=== PATIENT | male | born 1970 | race Caucasian/White ===

== ENCOUNTER 2023-07-22 17:53 | Emergency (ER) | payer OTHER, SELFPAY ==
[2023-07-22 17:58] VITALS: BP 157/112
--- NOTE | 2023-07-22 18:36 | ED.GENMED ---
History of Present Illness
General
Chief Complaint: Cough
Source: patient
Time Seen by Provider: 07/22/23 18:23
Travel History
Have you had any contact with someone who has COVID-19?: No
Do you have any symptoms of coronavirus? Fever > 100 degrees, chills, cough, shortness of breath, sore throat, loss of taste or smell, muscle aches, or headache?: No
History of Present Illness
History of Present Illness:
52-year-old male with past medical history of hypertension, hyperlipidemia, recently treated for pneumonia earlier this year presenting to the emergency department from urgent care after experiencing hemoptysis that started today stating he noticed
flecks of blood intermixed with sputum which has been gradually worsening throughout the day. Patient went to urgent care who performed a chest x-ray which show a new right perihilar infiltrate but improved left-sided infiltrate from previous
pneumonia but was advised he should come to the emergency department. Patient completed a course of cefpodoxime about 2 weeks ago. He denies any fevers, chills, rigors, pleurisy, chest pain, palpitations, diaphoresis. Patient does note a history
of smoking cigarettes back when he was in high school but quit over 30 years ago. He denies any PE risk factors including recent travel, surgeries or cancer history.
Past History
Past History
ED Past Medical History: HTN, Hypercholesterolemia, Psychiatric (Anxiety, alcohol abuse) and Other (ETOH abuse/DTs/liver disease)
ED Past Surgical History: Orthopedic
Social History
Tobacco: Former smoker
Alcohol: Chronic alcoholic
Drug: None
Personal: Single
Living: alone
Review of Systems
Review of Systems
All Other Systems: ROS reviewed and negative except as documented in HPI and ROS
Phy Exam
Physical Exam
Physical Exam:
GENERAL: Alert , in no apparent distress
head: Normocephalic atraumatic
EYE: Clear conjunctiva
NECK: Supple
ENT: o/p clr, mmm.
CARDIAC: Regular rate and rhythm . Borderline tachycardic rate and rhythm, no murmur
LUNGS: Clear breath sounds bilaterally, no acute respiratory distress, no wheezes/rales/rhonchi
NEUROLOGICAL: Alert and oriented
SKIN: Warm and dry, skin intact.
MUSCULOSKELETAL: No edema, well perfused.
PSYCH: Normal and appropriate interaction.
Scores
Heart Failure Risk
Heart Failure Risk Score: Not Applicable
Heart Score for Chest Pain Patients
STEMI patient?: Not applicable
Withdrawal Assessment of Alcohol
Withdrawal Assessment Completed?: Not applicable
Course
Orders/Labs/Results
Orders:
Orders
07/22/23 18:24
CT Chest Pe Study Urgent
Comment:
Reason For Exam: hemoptysis
07/22/23 18:48
Complete Blood Count/With Diff Urgent
07/22/23 20:18
Comprehensive Metabolic Panel Urgent
07/22/23 21:58
Doxycycline [Vibramycin] 100 mg PO NOW STA
Abnormal Lab Results
07/22/23 07/22/23
18:48 20:18
WBC 15.5 H 10^3/uL
(4.8-10.8)
Abs Immat Gran (auto) 0.1 H 10^3/uL
(0-0.05)
Absolute Neuts (auto) 12.2 H 10^3/uL
(1.4-6.5)
Absolute Monos (auto) 1.1 H 10^3/uL
(0.1-0.6)
Neutrophils % 78.8 H %
(42.2-75.2)
Lymphocytes % 12.8 L %
(20.5-51.1)
Chloride 97 L mmol/L
(98-107)
Creatinine 0.5 L mg/dL
(0.7-1.3)
Glucose 102 H mg/dl
(70-99)
07/22/23 18:48
07/22/23 20:18
Vital Signs
Initial and Last Documented VS:
Initial Vital Signs
Temp Pulse Resp BP Pulse Ox
98.5 F 108 20 157/112 97
07/22/23 17:58 07/22/23 17:58 07/22/23 17:58 07/22/23 17:58 07/22/23 17:58
Last Documented Vital Signs
Temp Pulse Resp BP Pulse Ox
98.3 F 84 20 134/95 97
07/22/23 22:15 07/22/23 22:15 07/22/23 22:15 07/22/23 22:15 07/22/23 22:15
MDM/Problems Addressed
Differential Diagnosis Includes:
Pneumonia, malignancy, pulmonary embolism
MDM/Problems Addressed:
52-year-old male presenting the emergency department for evaluation of persistent cough in the setting of recently diagnosed pneumonia few weeks ago, completed course of antibiotics but still had a lingering cough, today had a few episodes of
hemoptysis prompting him to go back to urgent care who did a chest x-ray which showed a new right perihilar infiltrate but he was advised that he should come to the ER for further evaluation. Patient is hypertensive and does have a mildly elevated
heart rate here. CT angio of the chest ordered for PE rule out. Patient is otherwise hemodynamically stable and well-appearing.
*Radiology
Radiology exam reviewed: radiology read reviewed
*Pulse Oximetry
Patient hypoxic: no
*Critical Care Note
Total Time (30-74mins, 75-104mins- exclusive of procedures): Not Applicable
Patient Management
Escalation/DeEscalation of care consider admission/obs:
Patient CT of the chest confirms there is no pulmonary embolism however patient does have mild right upper and lower lobe pneumonia. He was informed of his CT findings as well as leukocytosis and given that patient had already been on an antibiotic
and did not improve I recommended we admit the patient for IV antibiotics, infectious disease consultation and possible pulmonary consultation. Patient ultimately declined this and would prefer to be discharged home and states that if he feels he
is not getting any better he will return to the emergency department. Will treat patient with doxycycline. First dose of antibiotic given prior to discharge. Patient is aware of return precautions and that he can come back to the emergency
department at any time he so chooses.
ED Attending Note
-
Portions of this chart may have been created with voice recognition software.� Occasional wrong word or��sound alike� substitutions may have occurred due to the inherent limitations of voice recognition software.
Discharge Plan
Departure
Patient Disposition: Home (Routine Discharge)
Date of Disposition: 07/22/23
Time of Disposition: 21:57
Patient with high blood pressure during this ER visit?: Yes
Discharge Problem:
Pneumonia
Instructions: Pneumonia, Adult (DC)
Prescriptions:
New
doxycycline hyclate 100 mg tablet
100 mg PO BID Qty: 19 0RF
No Action
amlodipine 10 MG tablet
10 mg PO QPM
rosuvastatin 20 MG tablet
20 mg PO QPM
metoprolol succinate 100 mg tablet extended release 24 hr
100 mg PO DAILY
folic acid
1 tab PO DAILY
Referrals:
NONE,* [Family Provider] -
Interventions
Interventions:
*Risk Screen - Suicide Last Done: 07/22/23 17:58
*General Assessment Last Done: 07/22/23 19:36
*Neglect/Abuse Screening Last Done: 07/22/23 17:58
ED- Fall Risk Assessment Last Done: 07/22/23 19:36
*ED COVID-19 Vaccine History Last Done: 07/22/23 17:58
*Nursing Disposition Last Done: 07/22/23 22:48
ED- Pulmonary Assessment Last Done: 07/22/23 19:36
Discharge Date and Time
Discharge Date/Time: 07/22/23 22:30
[2023-07-22 19:00] LABS: % Basophils 0.4 % (0-2); % Eosinophils 0.3 % (0-6); % Immature Granulocytes 0.5 % (0-0.5); % Lymphocytes 12.8 % (20.5-51.1); % Monocytes 7.2 % (1.7-9.3); % Neutrophils 78.8 % (42.2-75.2); Absolute Basophils 0.1 10^3/uL (0-0.2); Absolute Immature Granulocytes 0.1 10^3/uL (0-0.05); Absolute Monocytes 1.1 10^3/uL (0.1-0.6); Absolute Neutrophils 12.2 10^3/uL (1.4-6.5); Hematocrit 44.5 % (39.0-52.0); Hemoglobin 15.8 g/dL (13.0-18.0); Mean Corp Hgb Conc. 35.5 g/dL (33.0-37.0); Mean Corpuscular Hgb 29.5 pg (27.0-31.0); Nucleated Red Blood Cells % 0 % (-); Platelet Count 238 10^3/uL (130-400); Red Blood Cell Count 5.36 10^6/uL (4.70-6.10); Red Cell Dist. Width 12.7 % (11.5-14.5); White Blood Cell Count 15.5 10^3/uL (4.8-10.8)
[2023-07-22 19:36] VITALS: BMI 33.4
[2023-07-22 19:40] VITALS: BP 152/99
[2023-07-22 20:38] LABS: ALT (SGPT) 38 U/L (0-50); AST (SGOT) 36 U/L (17-59); Albumin 4.2 g/dl (3.5-5.0); Alkaline Phosphatase 123 U/L (38-126); Blood Urea Nitrogen 15 mg/dl (9-20); Calcium 9.7 mg/dl (8.4-10.2); Carbon Dioxide 29 mmol/L (22-30); Chloride 97 mmol/L (98-107); Estimated Creatinine Clearance > 125 ml/min; Glucose 102 mg/dl (70-99); Potassium 4.2 mmol/L (3.5-5.1); Sodium 135 mmol/L (135-145); Total Bilirubin 1.3 mg/dl (0.2-1.3); Total Protein 6.9 g/dl (6.3-8.2); eGFR > 60.00
[2023-07-22 22:15] VITALS: BP 134/95
[2023-07-22] MEDS: VIBRAMYCIN 100 MG PO (22:18)
== END 2023-07-22 22:30 | disposition home or self-care (01) ==
LOC: EMR 17:53
PROVIDERS: EMERGENCY PHYSICIAN Student in an Organized Health Care Education/Training Program
DX: J18.9 Pneumonia, unspecified organism (principal); E78.00 Pure hypercholesterolemia, unspecified; I10 Essential (primary) hypertension; Z87.891 Personal history of nicotine dependence
CPT/HCPCS: 99284; 71275; 80053; 85025; Q9967

== ENCOUNTER 2023-08-04 10:42 | Emergency (ER) | payer OTHER, SELFPAY ==
[2023-08-04 10:51] VITALS: BP 144/90
[2023-08-04 11:02] VITALS: BP 109/84
[2023-08-04 11:27] VITALS: BMI 35.1
[2023-08-04 12:08] VITALS: BP 132/95
[2023-08-04 12:10] LABS: % Basophils 0.5 % (0-2); % Eosinophils 0.5 % (0-6); % Immature Granulocytes 0.5 % (0-0.5); % Monocytes 6.1 % (1.7-9.3); % Neutrophils 71.4 % (42.2-75.2); Absolute Lymphocytes 1.7 10^3/uL (1.2-3.4); Absolute Monocytes 0.5 10^3/uL (0.1-0.6); Absolute Neutrophils 5.7 10^3/uL (1.4-6.5); Hematocrit 43.2 % (39.0-52.0); Hemoglobin 15.7 g/dL (13.0-18.0); Mean Corp Hgb Conc. 36.3 g/dL (33.0-37.0); Mean Corpuscular Hgb 29.7 pg (27.0-31.0); Mean Corpuscular Volume 81.7 fL (80.0-94.0); Nucleated Red Blood Cells % 0 % (-); Platelet Count 219 10^3/uL (130-400); Red Blood Cell Count 5.29 10^6/uL (4.70-6.10); Red Cell Dist. Width 13.2 % (11.5-14.5)
[2023-08-04 12:36] LABS: Blood Urea Nitrogen 14 mg/dl (9-20); Carbon Dioxide 23 mmol/L (22-30); Chloride 104 mmol/L (98-107); Estimated Creatinine Clearance > 125 ml/min; Glucose 110 mg/dl (70-99); Potassium 4.4 mmol/L (3.5-5.1); Sodium 137 mmol/L (135-145); eGFR > 60.00
[2023-08-04 12:40] LABS: Troponin I < 0.012 ng/ml
[2023-08-04 13:02] VITALS: BP 132/89
--- NOTE | 2023-08-04 13:52 | ED.GENMED ---
History of Present Illness
General
Chief Complaint: Breathing Problem
Source: patient
Exam Limitations: none
Time Seen by Provider: 08/04/23 11:40
Travel History
Have you had any contact with someone who has COVID-19?: No
Do you have any symptoms of coronavirus? Fever > 100 degrees, chills, cough, shortness of breath, sore throat, loss of taste or smell, muscle aches, or headache?: No
History of Present Illness
History of Present Illness:
52-year-old male presents feeling short of breath despite being treated for pneumonia about 10 days ago. Patient states he just does not feel better. Still had a mild cough but no fevers. On prior visit he had a CTA of the chest. no cp. no
further hemoptysis. No leg pain, no leg swelling.
Past History
Past History
ED Past Medical History: HTN, Hypercholesterolemia, Psychiatric (Anxiety, alcohol abuse) and Other (ETOH abuse/DTs/liver disease)
ED Past Surgical History: Orthopedic
Social History
Tobacco: Former smoker
Alcohol: Chronic alcoholic
Drug: None
Personal: Single
Living: alone
Phy Exam
Physical Exam
Physical Exam:
CONSTITUTIONAL Patient alert and oriented to person, place and time. Well-appearing. Vital signs reviewed.
HEAD atraumatic, normocephalic.
EYES eyelids normal to inspection, Pupils equally round and reactive to light, Extraocular muscles intact, Conjunctiva normal, Sclera normal.
NECK normal range of motion, Trachea midline, no jugular venous distention.
RESPIRATORY CHEST No respiratory distress noted, Chest expansion equal, Bilateral breath sounds clear.
CARDIOVASCULAR regular rate and rhythm, Heart sounds normal.
ABDOMEN abdomen nontender, Bowel sounds normal. No distention.
BACK normal inspection, no obvious deformities
UPPER EXTREMITY range of motion normal, Motor strength normal, no cyanosis, no edema.
LOWER EXTREMITY range of motion normal, Motor strength normal, no cyanosis, no edema.
NEURO Speech normal, No focal motor deficits, Jamarcus coma scale 15, Memory normal, Cranial Nerves intact to screening exam.
SKIN skin warm, dry, and normal in color.
PSYCHIATRIC patient oriented to person place and time, Normal affect.
Scores
Heart Failure Risk
Heart Failure Risk Score: Not Applicable
Course
Orders/Labs/Results
Orders:
Orders
08/04/23 11:02
Chest [CR Chest - 2 Views ] Urgent
Comment:
Reason For Exam: cough/sob
08/04/23 11:55
Electrocardiogram (*1) Stat
Reason for Study: Other
Other Reason for Exam: chest pain
EKG- Treatment ONCE
08/04/23 12:05
Basic Metabolic Panel Urgent
Complete Blood Count/With Diff Urgent
Troponin I Urgent
Abnormal Lab Results
08/04/23
12:05
Creatinine 0.6 L mg/dL
(0.7-1.3)
Glucose 110 H mg/dl
(70-99)
08/04/23 12:05
08/04/23 12:05
Vital Signs
Initial and Last Documented VS:
Initial Vital Signs
Temp Pulse Resp BP Pulse Ox
98.3 F 79 16 144/90 96
08/04/23 10:51 08/04/23 10:51 08/04/23 10:51 08/04/23 10:51 08/04/23 10:51
Last Documented Vital Signs
Temp Pulse Resp BP Pulse Ox
98.3 F 75 19 132/89 98
08/04/23 10:51 08/04/23 14:00 08/04/23 14:00 08/04/23 13:02 08/04/23 12:08
MDM/Problems Addressed
Differential Diagnosis Includes:
SD, CHF, pulmonary embolism, pneumonia, pneumothorax, anemia, electrolyte disturbance, dehydration
MDM/Problems Addressed:
Dyspnea
*Radiology
Radiology exam reviewed: all reviewed NAD by ED Provider
*Pulse Oximetry
Patient hypoxic: no
*EKG
Interpreted by ED Provider?: Yes
Interpretation: normal
Rate: normal
Rhythm: sinus and PVC's
QRS Pattern: normal QRS
Ischemia: non-specific ST changes
*Jet Mechanic Interpretation
Rate: normal
Interpretation: normal
Rhythm: sinus
*Critical Care Note
Total Time (30-74mins, 75-104mins- exclusive of procedures): Not Applicable
Data Reviewed
Review of Other/Old Records Reveals: Radiology Studies (Prior CTA reviewed, no pulmonary embolism noted by radiology)
Source: patient
Prescriptions/Medications Considered But Not Given:
Considered antibiotics but he is afebrile white count normal. Chest x-ray normal
Further Testing Considered But Not Given:
Consider chest CT but recently with pulmonary embolism
Patient Management
Escalation/DeEscalation of care consider admission/obs:
Patient appears well. Troponin negative, EKG unremarkable, chest x-ray unremarkable, okay for discharge outpatient follow-up
ED Attending Note
-
Portions of this chart may have been created with voice recognition software.� Occasional wrong word or��sound alike� substitutions may have occurred due to the inherent limitations of voice recognition software.
Discharge Plan
Departure
Patient Disposition: Home (Routine Discharge)
Date of Disposition: 08/04/23
Time of Disposition: 13:57
Patient with high blood pressure during this ER visit?: Yes
Discharge Problem:
Dyspnea
Instructions: Shortness of Breath (Dyspnea) (DC)
Prescriptions:
No Action
amlodipine 10 MG tablet
10 mg PO DAILY
rosuvastatin 20 MG tablet
20 mg PO QPM
metoprolol succinate 100 mg tablet extended release 24 hr
100 mg PO DAILY
folic acid 1 mg Tablet
1 mg PO DAILY
Referrals:
NONE,* [Family Provider] -
Activity Restrictions/Additional Instructions:
Please see your doctor in the next 3 to 5 days for follow-up and reevaluation. Return immediately for chest pain blood, fevers or any other concerns.
Interventions
Interventions:
*Risk Screen - Suicide Last Done: 08/04/23 10:51
*General Assessment Last Done: 08/04/23 10:51
*Neglect/Abuse Screening Last Done: 08/04/23 10:51
ED- Fall Risk Assessment Last Done: 08/04/23 11:27
*Nursing Disposition Last Done: 08/04/23 14:41
ED- Cardiac Assessment Last Done: 08/04/23 11:27
ED- Pulmonary Assessment Last Done: 08/04/23 11:27
Discharge Date and Time
Discharge Date/Time: 08/04/23 14:42
== END 2023-08-04 14:42 | disposition home or self-care (01) ==
LOC: EMR 10:42
PROVIDERS: EMERGENCY PHYSICIAN Emergency Medicine
DX: R06.00 Dyspnea, unspecified (principal); R06.02 Shortness of breath; R05.9 Cough, unspecified; Z87.891 Personal history of nicotine dependence
CPT/HCPCS: 99285; 71046; 80048; 84484; 85025; 93005

== ENCOUNTER 2024-02-17 04:41 | Emergency (ER) | payer OTHER, SELFPAY ==
[2024-02-17] VITALS (7 sets, daily range): BP systolic 157–196; BP diastolic 110–124; BMI 38.1
[2024-02-17 05:52] LABS: % Basophils 1.1 % (0-2); % Eosinophils 1.1 % (0-6); % Immature Granulocytes 0.9 % (0-0.5); % Lymphocytes 21.9 % (20.5-51.1); % Monocytes 10.8 % (1.7-9.3); % Neutrophils 64.2 % (42.2-75.2); Absolute Basophils 0.1 10^3/uL (0-0.2); Absolute Eosinophils 0.1 10^3/uL (0-0.7); Absolute Immature Granulocytes 0.1 10^3/uL (0-0.05); Absolute Lymphocytes 1.2 10^3/uL (1.2-3.4); Absolute Monocytes 0.6 10^3/uL (0.1-0.6); Absolute Neutrophils 3.6 10^3/uL (1.4-6.5); Hematocrit 43.5 % (39.0-52.0); Mean Corp Hgb Conc. 36.8 g/dL (33.0-37.0); Mean Corpuscular Hgb 31.4 pg (27.0-31.0); Mean Corpuscular Volume 85.3 fL (80.0-94.0); Nucleated Red Blood Cells % 0 % (-); Platelet Count 239 10^3/uL (130-400); Red Cell Dist. Width 12.5 % (11.5-14.5); White Blood Cell Count 5.7 10^3/uL (4.8-10.8)
[2024-02-17 06:50] LABS: ALT (SGPT) 69 U/L (0-50); AST (SGOT) 68 U/L (17-59); Albumin 4.9 g/dl (3.5-5.0); Alkaline Phosphatase 128 U/L (38-126); Blood Urea Nitrogen 11 mg/dl (9-20); Calcium 9.3 mg/dl (8.4-10.2); Carbon Dioxide 28 mmol/L (22-30); Chloride 103 mmol/L (98-107); Estimated Creatinine Clearance > 125 ml/min; Glucose 125 mg/dl (70-99); Sodium 147 mmol/L (135-145); Total Bilirubin 0.6 mg/dl (0.2-1.3); Total Protein 7.8 g/dl (6.3-8.2); eGFR > 60.00
[2024-02-17 07:02] LABS: NT-proBNP 36.4 pg/ml; Troponin I 0.018 ng/ml
--- NOTE | 2024-02-17 07:18 | ED.GENMED ---
History of Present Illness
General
Chief Complaint: Blood Pressure Problem
Source: patient
Exam Limitations: none
Time Seen by Provider: 02/17/24 06:23
Nursing documentation reviewed up to this point in time: agreed with
History of Present Illness
History of Present Illness:
Patient with history of hypertension on metoprolol and amlodipine, presents to ED after waking up this morning with sensation of 'high blood pressure'. When he checked his blood pressure, it was really high and he felt as though he needed to be
checked out. Denies headache. Denies dizziness. Denies blurred vision. Denies chest pain or chest palpitations. Denies shortness of breath. Denies nausea or vomiting. Denies diaphoresis. Patient's blood pressure currently is being managed by
his television picture tube rebuilder at [facility]. Of note, patient stopped taking amlodipine 2 days ago, as he noticed significant leg swelling, without informing his physician. He does not report appointment with his television picture tube rebuilder in 2 months. Denies recent
dietary changes. Denies recent change in weight. Denies back pain. Patient does admit to drinking daily, i.e. wine.
Past History
Past History
ED Past Medical History: HTN, Hypercholesterolemia, Psychiatric (Anxiety, alcohol abuse) and Other (ETOH abuse/DTs/liver disease)
ED Past Surgical History: Orthopedic
Social History
Tobacco: Former smoker
Alcohol: Chronic alcoholic
Drug: None
Personal: Single
Living: alone
Review of Systems
Review of Systems
Allergies reviewed?: Yes
All Other Systems: ROS reviewed and negative except as documented in HPI and ROS
Constitutional: Reports no symptoms
EENT: Reports no symptoms
Respiratory: Reports no symptoms
Cardiac: Reports no symptoms
ABD/GI: Reports no symptoms
: Reports no symptoms
Musculoskeletal: Reports edema
Skin: Reports no symptoms
Neurological: Reports no symptoms
Phy Exam
Physical Exam
Physical Exam:
Physical Exam
General: no apparent distress, not acutely ill. afebrile. overweight. hypertensive.
Head: nc/at. eomi
Neck: supple. no meningeal signs.
Heart: s1/s2 regular rate and rhythm, no murmur. equal radial pulses.
Lungs: no acute respiratory distress. clear bilaterally
Abdomen: normal bowel sounds. not tender.
Neuro: alert and oriented. no focal neurological deficits
Skin: no rash
Psychiatric: well kept. interactive and cooperative
Extremities: LE b/l edema, nonpitting. no calf tenderness.
Course
Orders/Labs/Results
Orders:
Orders
02/17/24 05:38
Electrocardiogram (*1) Urgent
Reason for Study: Shortness of Breath
EKG- Treatment ONCE
02/17/24 05:40
Complete Blood Count/With Diff Urgent
02/17/24 06:19
Comprehensive Metabolic Panel Urgent
Comment: REDRAW
NT-proBNP Urgent
TSH Reflex To Free T4 Urgent
Comment: ADD ON
Troponin I Urgent
02/17/24 07:09
Add On- LAB Urgent
Tests Added?: TSH to reflex Free T4
Hydrochlorothiazide [Oretic] 25 mg PO NOW STA
Labetalol HCl [Trandate] 20 mg IV NOW STA
02/17/24 07:18
Urinalysis Reflex To Culture Urgent
Date Specimen was Collected: 02/17/24
Time Specimen was Collected: 07:14
Abnormal Lab Results
02/17/24 02/17/24
05:40 06:19
MCH 31.4 H pg
(27.0-31.0)
Abs Immat Gran (auto) 0.1 H 10^3/uL
(0-0.05)
Immature Gran % 0.9 H %
(0-0.5)
Monocytes % 10.8 H %
(1.7-9.3)
Sodium 147 H mmol/L
(135-145)
Glucose 125 H mg/dl
(70-99)
AST 68 H U/L
(17-59)
ALT 69 H U/L
(0-50)
Alkaline Phosphatase 128 H U/L
(38-126)
02/17/24 05:40
02/17/24 06:19
Vital Signs
Initial and Last Documented VS:
Initial Vital Signs
Temp Pulse Resp BP Pulse Ox
99 F 114 20 174/114 98
02/17/24 04:45 02/17/24 04:45 02/17/24 04:45 02/17/24 04:45 02/17/24 04:45
Last Documented Vital Signs
Temp Pulse Resp BP Pulse Ox
99 F 96 21 164/111 96
02/17/24 04:45 02/17/24 07:30 02/17/24 07:30 02/17/24 07:26 02/17/24 06:00
MDM/Problems Addressed
MDM/Problems Addressed:
Patient presents with elevated blood pressure, without any other complaints, i.e. headache/chest pain/shortness of breath/dizziness. Patient's blood pressure improved with treatment. Mildly abnormal blood work noted and informed patient to
follow-up with his television picture tube rebuilder for reevaluation, including repeat blood work. In addition, patient will be advised to discontinue his Lasix and start HCTZ, until reevaluation with his television picture tube rebuilder. Patient expresses understanding at time of
discharge.
*Critical Care Note
Total Time (30-74mins, 75-104mins- exclusive of procedures): Not Applicable
ED Attending Note
-
Portions of this chart may have been created with voice recognition software.� Occasional wrong word or��sound alike� substitutions may have occurred due to the inherent limitations of voice recognition software.
Discharge Plan
Departure
Patient Disposition: Home (Routine Discharge)
Date of Disposition: 02/17/24
Time of Disposition: 07:55
Patient with high blood pressure during this ER visit?: Yes
Discharge Problem:
Hypertension
Instructions: High Blood Pressure (DC)
Prescriptions:
New
hydrochlorothiazide 25 mg tablet
25 mg PO DAILY Qty: 20 0RF
No Action
amlodipine 10 MG tablet
10 mg PO DAILY
rosuvastatin 20 MG tablet
20 mg PO DAILY
metoprolol succinate 100 mg tablet extended release 24 hr
50 mg PO DAILY
folic acid 1 mg Tablet
1 mg PO DAILY
furosemide [Lasix] 40 mg Tablet
40 mg PO DAILYPRN PRN (Reason: fluid retension)
Referrals:
NONE,* [Family Provider] -
Stand Alone Forms: Return to Work
Activity Restrictions/Additional Instructions:
As discussed, please follow-up with your television picture tube rebuilder for reevaluation upon discharge. In the meantime, please discontinue use of Lasix at home. Your prescription has been sent electronically to [facility] pharmacy in [place].
Interventions
Interventions:
*Risk Screen - Suicide Last Done: 02/17/24 04:45
*General Assessment Last Done: 02/17/24 04:45
*Neglect/Abuse Screening Last Done: 02/17/24 04:45
ED- Fall Risk Assessment Last Done: 02/17/24 04:45
*ED COVID-19 Vaccine History Last Done: 02/17/24 04:45
ED- Cardiac Assessment Last Done: 02/17/24 06:27
ED- Neurological Assessment Last Done: 02/17/24 06:27
ED- Pulmonary Assessment Last Done: 02/17/24 06:27
Discharge Date and Time
Print Language: MALAWIAN
[2024-02-17] MEDS: TRANDATE 20 MG IV (07:22)
[2024-02-17] MEDS: ORETIC 25 MG PO (07:23)
[2024-02-17 08:32] LABS: Urine Albumin 2+ (Neg - Trace); Urine Bilirubin Negative (Negative); Urine Character Clear (Clear); Urine Color Yellow; Urine Glucose Negative (Negative); Urine Ketone Negative (Negative); Urine Leukocyte Negative (Negative); Urine Nitrite Negative (Negative); Urine Occult Blood 1+ (Negative); Urine Urobilinogen Negative (Neg - 1+)
[2024-02-17 08:58] LABS: TSH Reflex To Free T4 1.51 uIU/ml (0.47-4.68)
[2024-02-17 09:12] LABS: Urine Amorphous Seen; Urine Mucus Few
[2024-02-17 09:14] LABS: Urine White Cell 0-2 /HPF (0-5)
[2024-02-17 09:15] LABS: Urine Red Blood Cell 0-2 /HPF (0-2)
== END 2024-02-17 08:05 | disposition home or self-care (01) ==
LOC: EMR 04:41
PROVIDERS: Emergency Medicine; EMERGENCY PHYSICIAN Emergency Medicine
DX: I10 Essential (primary) hypertension (principal); E78.00 Pure hypercholesterolemia, unspecified; Z87.891 Personal history of nicotine dependence; Z79.899 Other long term (current) drug therapy; F41.9 Anxiety disorder, unspecified; F10.10 Alcohol abuse, uncomplicated; K70.9 Alcoholic liver disease, unspecified
CPT/HCPCS: 99283; 96374; 80053; 81003; 81015; 83880; 84443; 84484; 85025; 93005

== ENCOUNTER 2024-04-27 09:11 | Inpatient (IN) | payer OTHER, SELFPAY ==
[2024-04-27] VITALS (13 sets, daily range): BP systolic 108–193; BP diastolic 87–124; BMI 33.9
--- NOTE | 2024-04-27 06:27 | ED.GENMED ---
History of Present Illness
General
Chief Complaint: Withdrawal Symptoms
Source: patient, records and ambulance crew
Exam Limitations: none
Time Seen by Provider: 04/27/24 06:21
Nursing documentation reviewed up to this point in time: agreed with
History of Present Illness
History of Present Illness:
53-year-old male with a past medical history of hypertension, hyperlipidemia, paroxysmal A-fib, alcohol abuse with prior history of severe withdrawal symptoms and DTs who presents to the emergency department for evaluation of 'alcohol withdrawal.'
Patient says 'I am having withdrawal symptoms, they started yesterday.' He says that he has been a heavy drinker for quite some time, recently has been drinking about a bottle of wine a day. He says that he decided he wanted to stop drinking again
and his last drink was Friday evening (roughly 36 hours ago). He says that yesterday he started having tremors and this morning was having increasing tremulousness, anxiety, nausea with dry heaving. He says he is having some dizziness. He says he
has had similar symptoms with withdrawal in the past. He denies any headache. He denies any hallucinations. He denies any suicidality. He does have prior history of severe withdrawal symptoms and DTs requiring intubation and ICU admission.
Past History
Past History
ED Past Medical History: HTN, Hypercholesterolemia, Psychiatric (Anxiety, alcohol abuse) and Other (ETOH abuse/DTs/liver disease)
ED Past Surgical History: Orthopedic
Social History
Tobacco: Former smoker
Alcohol: Chronic alcoholic
Drug: None
Personal: Single
Living: alone
Review of Systems
Review of Systems
All Other Systems: ROS reviewed and negative except as documented in HPI and ROS
Constitutional: Denies fever or chills
EENT: Denies sore throat
Respiratory: Denies trouble breathing
Cardiac: Denies chest pain or palpitations
ABD/GI: Reports nausea and vomiting; Denies abdominal pain or diarrhea
: Denies flank pain
Musculoskeletal: Denies neck pain or back pain
Neurological: Reports dizzy; Denies headache
Psychiatric: Reports anxiety; Denies suicidal
Phy Exam
Physical Exam
Physical Exam:
General: Awake, alert, oriented x3; tremulous and anxious appearing
Head: Normocephalic, atraumatic
Eyes: Faint scleral icterus, pupils equal round and reactive to light bilaterally
Throat: Airway intact, dry mucous membranes
Neck: Trachea midline, supple without meningismus
Lungs: Clear to auscultation bilaterally, no wheezing, rales, rhonchi
Heart: Tachycardia with regular rhythm, no murmurs, gallops, or rubs
Abd: Soft, non distended, nontender
Neuro: Tremulous, no focal weakness or numbness, no dysarthria
Skin: Moist, scattered bruising on the extremities which appear old, no signs of acute trauma
Extremities: Warm and well-perfused with good pulses and no significant edema
Scores
Heart Failure Risk
Heart Failure Risk Score: Not Applicable
Heart Score for Chest Pain Patients
STEMI patient?: Not applicable
Withdrawal Assessment of Alcohol
Withdrawal Assessment Completed?: Yes
Nausea and Vomiting: Intermittent nausea with dry heaves
Tactile Disturbances: None
Tremor: Severe, even with arms not extended
Auditory Disturbances: Not present
Paroxysmal Sweats: Beads of sweat obvious on forehead
Visual Disturbances: Not present
Anxiety: Moderately anxious, or guarded, so anxiety is inferred
Headache, Fullness in Head: Not present
Agitation: Normal activity
Orientation and clouding of sensorium: Oriented and can do serial additions
Total CIWA Score: 19
Alcohol Withdrawal Medication Recommendation: Equal to MSAS Score 8-11. Lorazepam 1-2mg IV NOW & re-assess q1hr
Course
Orders/Labs/Results
Orders:
Orders
04/27/24 06:26
Electrocardiogram (*1) Urgent
Reason for Study: Tachycardia
EKG- Treatment ONCE
Drug Screen, Urine [Urine Drug Abuse Screen] Urgent
Lorazepam [Ativan] 1 mg IV NOW STA
04/27/24 06:27
0.9% Sodium Chloride 1000 ml [Nss] 1,000 ml IV BOLUS
04/27/24 06:31
Alcohol Urgent
Complete Blood Count/With Diff Urgent
Comprehensive Metabolic Panel Urgent
Lipase Urgent
Magnesium Urgent
Phos [Phosphorus] Urgent
Prothrombin Time Urgent
04/27/24 06:37
Bedside Glucose- Treatment ONCE
FOLic ACID [Folvite] 1 mg 0.9% Sodium Chloride 50 ml [Nss] 50 ml IV ONCE
Thiamine Injection 100 mg IV NOW STA
04/27/24 07:08
Potassium Chloride [KCl] 40 meq PO NOW STA
Potassium Chloride [KCl] 40 meq 0.9% Sodium Chloride 250 ml [Nss] 250 ml IV NOW
04/27/24 07:09
Ondansetron Injectable [Zofran] 4 mg IV NOW STA
04/27/24 08:00
Dextrose 5%/0.45%Sodchl 500 ml [D5/0.45%NaCl] 500 ml IV 100 mls/hr
Abnormal Lab Results
04/27/24 04/27/24
06:31 06:43
Abs Immat Gran (auto) 0.1 H 10^3/uL
(0-0.05)
Absolute Neuts (auto) 7.2 H 10^3/uL
(1.4-6.5)
Absolute Lymphs (auto) 0.4 L 10^3/uL
(1.2-3.4)
Immature Gran % 1.4 H %
(0-0.5)
Neutrophils % 85.3 H %
(42.2-75.2)
Lymphocytes % 5.2 L %
(20.5-51.1)
Sodium 133 L mmol/L
(135-145)
Potassium 2.7 L* mmol/L
(3.5-5.1)
Chloride 83 L mmol/L
(98-107)
Carbon Dioxide 12 L* mmol/L
(22-30)
BUN 7 L mg/dl
(9-20)
Glucose 202 H mg/dl
(70-99)
Total Bilirubin 5.9 H mg/dl
(0.2-1.3)
Alkaline Phosphatase 216 H U/L
(38-126)
Albumin 5.3 H g/dl
(3.5-5.0)
Lipase 655 H U/L
(23-300)
POC Glucose 202 H mg/dl
(70-99)
04/27/24 06:31
04/27/24 06:31
Vital Signs
Initial and Last Documented VS:
Initial Vital Signs
BP
193/111
04/27/24 06:22
Last Documented Vital Signs
Temp Pulse Resp BP Pulse Ox
36.7 C 128 24 193/111 93
04/27/24 06:23 04/27/24 06:30 04/27/24 06:30 04/27/24 06:23 04/27/24 06:30
MDM/Problems Addressed
Differential Diagnosis Includes:
Alcohol withdrawal
MDM/Problems Addressed:
53-year-old male with history of heavy daily alcohol use presents for evaluation of alcohol withdrawal symptoms after stopping drinking about 36 hours ago. Has had similar symptoms in the past. Vitals and exam as above�notably hypertensive and
tachycardic with clear signs of withdrawal on exam. Will place an IV send labs including a CBC and a CMP, lipase. Check alcohol and UDS. Check an INR. Will check an EKG. Will provide fluids, thiamine/folate, IV Ativan 1 mg to start. Monitor
closely reassess after the above.
Labs reviewed: CBC unremarkable although platelet count pending. INR is normal. Chemistry significant for hypokalemia, metabolic acidosis with elevated anion gap suspect alcoholic ketoacidosis. LFTs elevated, lipase elevated�suspect alcohol
related, hepatitis and pancreatitis. IV fluids in progress, patient also given IV Zofran. Will provide IV and p.o. potassium. Will admit for continued treatment of alcohol withdrawal and alcoholic ketoacidosis, alcoholic hepatitis and
pancreatitis. Case discussed with hospitalist.
Chronic conditions affecting care:
Alcohol abuse
Acute Exacerbation and/or Progression of Chronic Illness:
Hypertensive secondary to alcohol withdrawal�will treat withdrawal
Acute Exacerbation and/or Progression of Chronic Illness: HTN
*Pulse Oximetry
Patient hypoxic: no
*Critical Care Note
Total Time (30-74mins, 75-104mins- exclusive of procedures): Not Applicable
Data Reviewed
Review of Other/Old Records Reveals: Labs and Records
Source: patient, records and ambulance crew
Patient Management
Social determinants of health affecting care: Substance abuse (Alcohol abuse)
Discussion with other providers: Hospitalist (Discussed with hospitalist)
Escalation/DeEscalation of care consider admission/obs:
Admission indicated
ED Attending Note
-
Portions of this chart may have been created with voice recognition software.� Occasional wrong word or��sound alike� substitutions may have occurred due to the inherent limitations of voice recognition software.
Discharge Plan
Departure
Patient Disposition: Admit
Date of Disposition: 04/27/24
Time of Disposition: 07:14
Admit to doctor: Wilbur
Presentation/result/management discussed w/ accepting MD/DO: Hospitalist
Discharge Problem:
Alcoholic ketoacidosis, Alcohol withdrawal, Alcoholic hepatitis, Alcoholic pancreatitis, Acute hypokalemia
Prescriptions:
No Action
amlodipine 10 MG tablet
10 mg PO DAILY
rosuvastatin 20 MG tablet
20 mg PO DAILY
metoprolol succinate 100 mg tablet extended release 24 hr
50 mg PO DAILY
folic acid 1 mg Tablet
1 mg PO DAILY
furosemide [Lasix] 40 mg Tablet
40 mg PO DAILYPRN PRN (Reason: fluid retension)
hydrochlorothiazide 25 mg tablet
25 mg PO DAILY Qty: 20 0RF
Interventions
Interventions:
*Risk Screen - Suicide Last Done: 04/27/24 06:23
*General Assessment Last Done: 04/27/24 06:23
*Neglect/Abuse Screening Last Done: 04/27/24 06:23
*ED COVID-19 Vaccine History Last Done: 04/27/24 06:47
ED- Neurological Assessment Last Done: 04/27/24 06:47
ED-Psychological Assessment Last Done: 04/27/24 06:47
Discharge Date and Time
Print Language: GUYANESE
[2024-04-27] MEDS: ATIVAN 1 MG IV (06:34)
[2024-04-27] MEDS: NSS 1000 IV (06:34)
[2024-04-27 06:41] LABS: Hematocrit 48.3 % (39.0-52.0); Hemoglobin 17.8 g/dL (13.0-18.0); Mean Corp Hgb Conc. 36.9 g/dL (33.0-37.0); Mean Corpuscular Volume 84.1 fL (80.0-94.0); Red Blood Cell Count 5.74 10^6/uL (4.70-6.10); Red Cell Dist. Width 12.7 % (11.5-14.5); White Blood Cell Count 8.4 10^3/uL (4.8-10.8)
[2024-04-27 06:42] LABS: % Basophils 0.8 % (0-2); % Eosinophils 0.4 % (0-6); % Immature Granulocytes 1.4 % (0-0.5); % Lymphocytes 5.2 % (20.5-51.1); % Monocytes 6.9 % (1.7-9.3); % Neutrophils 85.3 % (42.2-75.2); Absolute Basophils 0.1 10^3/uL (0-0.2); Absolute Immature Granulocytes 0.1 10^3/uL (0-0.05); Absolute Lymphocytes 0.4 10^3/uL (1.2-3.4); Absolute Monocytes 0.6 10^3/uL (0.1-0.6); Absolute Neutrophils 7.2 10^3/uL (1.4-6.5); Nucleated Red Blood Cells % 0 % (-)
[2024-04-27 06:45] LABS: Glucose - Point of Care 202 mg/dl (70-99)
[2024-04-27 06:50] LABS: PT 13.7 Sec (11.4-14.6)
[2024-04-27 07:06] LABS: Albumin 5.3 g/dl (3.5-5.0); Alcohol 21 mg/dl; Alkaline Phosphatase 216 U/L (38-126); Blood Urea Nitrogen 7 mg/dl (9-20); Calcium 9.6 mg/dl (8.4-10.2); Carbon Dioxide 12 mmol/L (22-30); Chloride 83 mmol/L (98-107); Estimated Creatinine Clearance > 125 ml/min; Glucose 202 mg/dl (70-99); Lipase 655 U/L (23-300); Magnesium 1.6 mg/dl (1.6-2.3); Potassium 2.7 mmol/L (3.5-5.1); Sodium 133 mmol/L (135-145); Total Bilirubin 5.9 mg/dl (0.2-1.3); Total Protein 8.1 g/dl (6.3-8.2); eGFR > 60.00
[2024-04-27 07:23] LABS: Mean Platelet Volume 11.4 fL (7.4-10.4); Platelet Count 73 10^3/uL (130-400)
[2024-04-27 07:31] LABS: ALT (SGPT) 477 U/L (0-50); AST (SGOT) 671 U/L (17-59)
[2024-04-27] MEDS: D5/0.45%NACL 500 IV (07:34)
[2024-04-27] MEDS: ZOFRAN 4 MG IV (07:35)
[2024-04-27] MEDS: KCL 40 MEQ PO (07:35)
[2024-04-27] MEDS: THIAMINE INJECTION 100 MG IV (07:36)
[2024-04-27] MEDS: KCL 270 MEQ IV (07:51)
--- NOTE | 2024-04-27 08:49 | HPS.HSE ---
Family Physician
-
Family Physician: NOT KNOW UNKNOWN - PT DOES
Chief Complaint
-
Tremor/anxiety
History of Present Illness
Patient is a 53-year-old male with past medical history of alcohol use disorder, essential hypertension, hyperlipidemia, history of paroxysmal atrial fibrillation, gastroesophageal reflux disease, Gen anx disorder came to ER with new onset of
tremors/anxiety/restlessness. Patient have problem with alcohol use disorder and have gone through alcohol withdrawal in the past. Unfortunately patient go through phases of drinking and has been drinking 1 bottle of wine every day. Patient
stated of last drink on Friday evening. Blood alcohol level of 21 in ER. Yesterday patient started having tremor some nausea continued to get worse, patient came to ER for further help with alcohol withdrawal and alcohol cessation.
In ER patient able to provide history, visibly tremulous/anxious. Patient quite hypertensive and tachycardic. Have gone through alcohol withdrawal in the past but no history of seizure/coma/need of intubation . denies of having any ongoing
abdominal pain/diarrhea. Previous abdominal imaging has shown questionable liver cirrhosis although patient have denied any problem with abdominal distention/confusion/lower extremity edema. No bleeding diathesis. Denies
melena/hematemesis/hematochezia.
No cardiopulmonary complaints
Medical History
Past Medical History
Past Medical History: Reports Other
Additional Past Medical History:
alcohol use disorder, essential hypertension, hyperlipidemia, history of paroxysmal atrial fibrillation, gastroesophageal reflux disease, Gen anx disorder
Past Surgical History: Reports Other
Social History
Tobacco: Non-smoker
Alcohol: Daily
Drug: Marijuana (Ocassional use)
Personal: Single
Living: Alone
Family History
Family History: Not pertinent
Allergies / Home Medications
Allergies reflects when Allergies were last updated in [employer].
Home Medications with original date entered in [employer]
Allergy/Medication List:
Allergies
Allergy/AdvReac Type Severity Reaction Status Date / Time
ragweed pollen Allergy Unknown Verified 02/17/24 04:49
Home Medications
amlodipine 10 mg tablet 10 mg PO DAILY Blood pressure 02/25/21
rosuvastatin 20 mg tablet 20 mg PO DAILY High cholesterol 02/25/21
metoprolol succinate 100 mg tablet,extended release 24 hr 50 mg PO DAILY Blood pressure 07/17/22
folic acid 1 mg tablet 1 mg PO DAILY Supplement 07/22/23
furosemide 40 mg tablet (Lasix) 40 mg PO DAILYPRN PRN fluid retension 02/17/24
hydrochlorothiazide 25 mg tablet 25 mg PO DAILY #20 tabs 02/17/24
Review of Systems
-
A 12 point ROS was completed and negative except as noted: Yes
Physical Exam
Vital Signs
Vital Signs
Temp Pulse Resp BP Pulse Ox
98.1 F 121 30 143/105 92
04/27/24 06:23 04/27/24 08:00 04/27/24 08:00 04/27/24 08:00 04/27/24 08:00
Physical Exam
General: No Apparent Distress
HEENT: Atraumatic; No Oxygen
Respiratory: Clear
Cardiac: S1/S2, Regular Rhythm and Tachycardia; No Murmur
GI: Soft, Non Tender, Non Distended and Normal Bowel Sounds; No Organomegaly
Rectal: Deferred by Provider
Musculoskeletal: No Edema
Skin: No Rash
Neuro: Awake, Alert, Oriented and Tremors
Psych: Anxious
Laboratory Results
-
04/27/24 06:31
04/27/24 06:31
Laboratory Results
PT 13.7 Sec (11.4-14.6) 04/27/24 06:31
INR 1.00 04/27/24 06:31
Total Bilirubin 5.9 mg/dl (0.2-1.3) H 04/27/24 06:31
AST 671 U/L (17-59) H* 04/27/24 06:31
ALT 477 U/L (0-50) H 04/27/24 06:31
Alkaline Phosphatase 216 U/L (38-126) H 04/27/24 06:31
Lipase 655 U/L (23-300) H 04/27/24 06:31
Data Reviewed
-
Lab Data: Labs Reviewed by me and Discussed with Patient
Impression/Plan
-
1. Alcohol withdrawal
Alcohol use disorder
-Patient drinks 1 bottle of wine every day, last drink on Friday evening.
-Blood alcohol level of 21
-Patient already tachycardic/hypotensive/tremulous in ER. MSAS 7 given Ativan 1 dose
-Patient at high risk of going through severe withdrawal, will start phenobarb protocol with IV loading of 130 mg followed by taper protocol
-Admit patient to IMU
-BKS to be involved when patient out of withdrawal
2. Hypokalemia
-Got oral 40 mEq potassium and IV 40
-Magnesium within normal limit
-Recheck potassium level in afternoon
3. Elevated total bilirubin
Acute transaminitis/Alcoholic hepatitis
-ALT 477 AST 671 Tbilli 5.9
-INR normal. Discriminant factor 10. No indication for steroids
-Check liver and abdominal ultrasound, previous imaging in past of suggested possible mild cirrhosis
-Currently clinically no diathesis of active cirrhosis
4. Elevated lipase
-Denies appearing any significant abdominal pain. Have some mild nausea
-Maintain on full liquid for today, recheck lipase in the morning
5. Hyperglycemia
-Patient overweight, suspecting prediabetes/diabetes
-Hemoglobin A1c
6. Anion gap metabolic acidosis
-Presuming alcoholic ketoacidosis related
-Clinically no concern of lactic acidosis
-Maintain on oral bicarb therapy
7. Hyponatremia
-Suspected euvolemic with alcohol use
-monitor
8. Paroxysmal atrial fibrillation
-Not on anticoagulation therapy, EKG showing sinus tachycardia
-Continue home dose of Toprol-XL 50mg/d
9. Generalized weakness/balance problem
-PT OT evaluation once out of alcohol withdrawal
10. Hyperlipidemia
-Hold rosuvastatin for now as liver enzymes elevated
DVT PPX - lovenox
Full code
Total time spent : 85 mins
I personally saw and examined the patient.
I have reviewed all diagnostic interpretations and treatment plans as written.
Time includes patient management by me, time spent at the patients bedside, time to review lab and imaging results, discussing patient care, documentation in the medical record, and time spent with the family or caregiver and discussing care plan
with RN/Consultants.
[2024-04-27] MEDS: PHENOBARBITAL 102 MG IV (10:00)
[2024-04-27] MEDS: NORVASC 10 MG PO (11:27)
[2024-04-27] MEDS: TOPROL XL 50 MG PO (11:27)
[2024-04-27] MEDS: SODIUM BICARBONATE 1300 MG PO (11:27)
[2024-04-27] MEDS: ATIVAN 1 MG PO ×5 (11:28→22:59)
[2024-04-27] MEDS: FOLVITE 50.2 MG IV (11:28)
--- NOTE | 2024-04-27 12:03 | PTCARENOTE ---
Received patient on admission from ED via stretcher with K+ rider infusing and IVF capped. ST on monitor. Obvious tremors noted; MSAS =7. Administered Ativan as per prn order. Patient received phenobarbital in ED. BP 145/123 on arrival; medicated
with scheduled lopressor and norvasc. Repeat BP currently 143/114. HR remains 120s. Per Pharmacist Juli, instructed to hold IVF until she speaks with hospitalist Dr Kingston. She stated gp is 38; sodium bicarb tablets given on arrival. Reviewed all
with Dr Kingston who stated not DKA and to watch f/u bmp. Patient with scattered bruising t/o body in various stages of healing; patient denies falls. 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 He has a rash on his upper
back that is itchy but states that has been there prior to admission. He stated his cousin is who to call in case of emergency but his mother will be the one to help him on discharge; also stated he will Uber home. See worklist for full assessment
and vital signs, as well as MSAS score; see MAR for med administration.
--- NOTE | 2024-04-27 12:22 | PTCARENOTE ---
IVF to be cancelled per Dr Kingston. Informed him that patient has what looks like a splinter/foreign body in his L heel vs scab. Dr Kingston also informed that patient has an itchy rash to his upper back that he states was there [employer]ACEM[employer]ER. WOC consulted.
[2024-04-27 13:06] LABS: Glycohemoglobin (HgbA1c) 6.2 % (4.0-5.6)
[2024-04-27 13:22] LABS: Blood Urea Nitrogen 8 mg/dl (9-20); Calcium 9.2 mg/dl (8.4-10.2); Carbon Dioxide 29 mmol/L (22-30); Chloride 86 mmol/L (98-107); Estimated Creatinine Clearance > 125 ml/min; Glucose 164 mg/dl (70-99); Potassium 3.1 mmol/L (3.5-5.1); Sodium 131 mmol/L (135-145); eGFR > 60.00
[2024-04-27 13:43] LABS: Urine Albumin 2+ (Neg - Trace); Urine Bilirubin 1+ (Negative); Urine Character Clear (Clear); Urine Glucose Negative (Negative); Urine Ketone 3+ (Negative); Urine Leukocyte Negative (Negative); Urine Nitrite Negative (Negative); Urine Occult Blood 2+ (Negative); Urine Specific Gravity 1.015 (<1.030); Urine Urobilinogen 3+ (Neg - 1+)
[2024-04-27 13:44] LABS: Urine Color Orange
[2024-04-27 13:49] LABS: Urine Squamous Cell 0-2 /LPF (Few)
[2024-04-27 13:50] LABS: Urine Bacteria Few (Negative)
[2024-04-27 14:21] LABS: Barbiturates Positive (Negative); Benzodiazepines Positive (Negative)
[2024-04-27 14:22] LABS: Amphetamines Negative (Negative); Buprenorphine Negative (Negative); Cocaine Negative (Negative); Marijuana Negative (Negative); Methadone Negative (Negative); Methamphetamines Negative (Negative); Opiates Negative (Negative); Phencyclidine Negative (Negative); Tricyclic Antidepressants Negative (Negative)
[2024-04-27 14:59] LABS: Fentanyl, Urine Negative (Negative)
[2024-04-27] MEDS: KLOR-CON 40 MEQ PO (15:27)
[2024-04-27] MEDS: PHENOBARBITAL 97.5 MG IV ×2 (15:27→21:18)
[2024-04-27] MEDS: THIAMINE INJECTION 200 MG IV ×2 (15:28→22:53)
[2024-04-27] MEDS: LOVENOX 40 MG SC (16:58)
[2024-04-28] VITALS (14 sets, daily range): BP systolic 91–123; BP diastolic 70–106; PULSE 111–114; O2SAT 95
--- NOTE | 2024-04-28 05:45 | PTCARENOTE ---
no acute events overnight, pt remains AAOx3- able to make needs known, VSS. MSAS max of 5 overnight, given PO ativan as needed. pt reports that he feels much better. still with some tremors. HR 100s-120s. no complaints of pain. pt ready to go home.
care ongoing.
[2024-04-28 06:03] LABS: Hemoglobin 16.5 g/dL (13.0-18.0); Mean Corp Hgb Conc. 35.9 g/dL (33.0-37.0); Mean Corpuscular Hgb 31.5 pg (27.0-31.0); Mean Platelet Volume 11.1 fL (7.4-10.4); Platelet Count 47 10^3/uL (130-400); Red Blood Cell Count 5.23 10^6/uL (4.70-6.10); White Blood Cell Count 4.7 10^3/uL (4.8-10.8)
[2024-04-28 06:06] LABS: ALT (SGPT) 375 U/L (0-50); AST (SGOT) 402 U/L (17-59); Albumin 4.3 g/dl (3.5-5.0); Alkaline Phosphatase 192 U/L (38-126); Blood Urea Nitrogen 13 mg/dl (9-20); Calcium 9.7 mg/dl (8.4-10.2); Carbon Dioxide 28 mmol/L (22-30); Chloride 90 mmol/L (98-107); Estimated Creatinine Clearance > 125 ml/min; Glucose 137 mg/dl (70-99); Lipase 564 U/L (23-300); Sodium 133 mmol/L (135-145); Total Bilirubin 6.2 mg/dl (0.2-1.3); eGFR > 60.00
[2024-04-28] MEDS: FOLVITE 1 MG PO (08:04)
[2024-04-28] MEDS: TOPROL XL 50 MG PO (08:06)
[2024-04-28] MEDS: PHENOBARBITAL 97.5 MG IV ×3 (08:07→22:02)
[2024-04-28] MEDS: NORVASC 10 MG PO (08:07)
[2024-04-28] MEDS: THIAMINE INJECTION 200 MG IV ×2 (08:08→16:18)
[2024-04-28] MEDS: ATIVAN 1 MG PO ×3 (08:12→18:37)
--- NOTE | 2024-04-28 09:07 | W.PN.HOSP.TC ---
Today's Communication/Plan
-
Continue Venofer protocol
Potassium replacement
Start metformin/insulin sliding scale
PT/OT
BCARES consulted
Assessment / Plan
Assessment / Plan
1. Alcohol withdrawal
Alcohol use disorder
-Patient drinks 1 bottle of wine every day, last drink on Friday evening.
-Blood alcohol level of 21
-Patient was tachycardic/hypotensive/tremulous in ER.
-MSAS scores reviewed, controlled on phenobarb. continue taper course
-BCARES consulted for help.
2. Hypokalemia
-Magnesium within normal limit
-replace with 40meq
3. Elevated total bilirubin - Trending down
Acute transaminitis/Alcoholic hepatitis - Improving
-ALT 477 AST 671 Tbilli 5.9
-INR normal. Discriminant factor 10. No indication for steroids
-Liver and abdominal ultrasound, showing hepatomegaly from hepatic steatosis only
4. Elevated lipase
-No abd pain/n/v overnight
-maintain on LF diet.
5. Pre-diabetic
-Hbg a1c of 6.2
-Started on metformin/ISS
6. Anion gap metabolic acidosis - Resolved
-Presuming alcoholic ketoacidosis related
-resolved with oral bicarb dosing.
7. Hyponatremia
-Suspected euvolemic with alcohol use
-monitor
8. Paroxysmal atrial fibrillation
-Not on anticoagulation therapy, EKG showing sinus tachycardia
-Continue home dose of Toprol-XL 50mg/d
9. Generalized weakness/balance problem
-PT OT evaluation once out of alcohol withdrawal
10. Hyperlipidemia
-Hold rosuvastatin for now as liver enzymes elevated
DVT PPX - lovenox
Full code
Total time spent : 53 mins
Anticipated Discharge: 24 - 48 hours
Subjective/Interval History
-
Date of Service: April 28, 2024
continues to remains tremulous
remains tachycardic
Objective Data
-
Labs:
Laboratory Results
04/28/24
04:57
WBC 4.7 L
Hgb 16.5
Hct 46.0
Plt Count 47 L D
Sodium 133 L
Potassium 3.0 L
Chloride 90 L
Carbon Dioxide 28
BUN 13
Creatinine 0.7
Glucose 137 H
Calcium 9.7
Total Bilirubin 6.2 H
AST 402 H
ALT 375 H
Alkaline Phosphatase 192 H
Vital Signs:
Vital Signs
Temp Pulse Resp BP Pulse Ox
98.4 F 120 20 123/102 95
04/28/24 07:50 04/28/24 08:07 04/28/24 06:00 04/28/24 08:07 04/28/24 08:00
I&O
04/27/24 04/28/24 04/29/24
06:59 06:59 06:59
Intake Total 1010 / 1010
Output Total 1350 / 1350
Balance -340 / -340
Review of Systems
-
Respiratory: Reports No Symptoms
Cardiac: Reports No Symptoms
Abdomen/GI: Reports No Symptoms
Physical Exam
-
General: No Apparent Distress
HEENT: Negative Oxygen
Respiratory: Clear to Auscultation
Cardiac: Regular Rhythm and S1/S2; Negative Murmur, Rub or Gallop
GI: Soft, Nontender, Nondistended and Normal Bowel Sounds; Negative Organomegaly
Rectal: Deferred by Provider
Musculoskeletal: No Edema
Skin: Negative Rash
Neuro: Nonfocal/Grossly Intact and Other (Tremulous)
--- NOTE | 2024-04-28 09:27 | WOUNDNOTE ---
ANNAMARIA RN note: Patient admitted with alcoholic ketoacidosis.
See H&P for complete history.
PMH: Alcoholic, A-fib, Anxiety, DT's, liver disease.
Wound Location and type/assessment: Patient admitted with: Scattered bruising from frequent falls. L heel plantar with dried up cut, patient reports from stepping on glass 1 month ago. Patient confirmed he walks barefoot in house and glass was
inside home. No induration or foreign body palpated, no drainage and no complaint of pain. Does not appear to be infected.
Appetite: Good
Pressure redistribution devices in place: On [place] air, received sitting in recliner chair.
Plan: Small silicone foam applied with slipper socks in use. legs elevated while in recliner.
Will confirm orders with hospitalist and updated nurse Samia. Updated care plan and will sign off.
Note to case management of equipment requested for discharge:None
--- NOTE | 2024-04-28 10:43 | PTCARENOTE ---
Dr. Anatoliy Kingston made aware of carline colored urine. No new orders at this time. Care ongoing.
[2024-04-28] MEDS: GLUCOPHAGE 500 MG PO ×2 (11:04→16:18)
[2024-04-28 11:56] LABS: Glucose - Point of Care 144 mg/dl (70-99)
[2024-04-28] MEDS: KLOR-CON 40 MEQ PO (13:50)
--- NOTE | 2024-04-28 15:59 | PTOTSP ---
pt currently demosntrates ability to complete simple ADLs, functional transfers, ambulation with supervision to no assistance. noted tremors in B hands. no acute OT needs identified at this time, will sign off.
[2024-04-28 16:13] LABS: Glucose - Point of Care 120 mg/dl (70-99)
--- NOTE | 2024-04-28 16:30 | PTCARENOTE ---
Patient AOx3. Patient can be forgetful at times. Bed alarm and chair alarm in place and audible. Patient education provided to patient about ringing call curiel for assistance. Patient verbalized understanding. MSAS completed per order. Medication
provided to patient per MSAS score PRN. Patient OOB and ambulating in hallway with assist x1. Patient on RA with SpO2 greater than 92%. Sinus tachy with occasional PVC's on monitor. B/L eyes are jaundice. Call curiel within reach, bed in lowest
position and call curiel within reach.
--- NOTE | 2024-04-28 17:36 | CM ---
Patient with Hx alcohol use disorder. Tx screen noted. Room air. MSAS 5 ---> 2 today. Receiving IV Phenobarb, IV Ativan prn. Per nursing; OOB chair. Seen by wound care nurse. PT/OT Evals; no PT/OT recommended.
Met with patient who resides alone in a 2 story house with 3 DAVI.
The patient has been independent in ADLs and ambulation.
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
His only DME is a BP machine.
No prior VN or SNF.
PCP - Dr Trujillo (? spelling) at [place]
[facility]
The patient's contact is Bianca Shultz, his cousin. The patient in not and has no children.
CM Consult: Substance Abuse
The patient says he already spoke with MIL today. He states he plans on doing AA when he is discharged.
Spoke with MIL [place]; he met with the patient who was not interested in any inpatient or outpatient referrals/resources.
Spoke with nurse Love; nurse reports patient has many bruises throughout his body, suggesting he is possibly falling at home, possibly when intoxicated.
Plan home.
[2024-04-29] VITALS (13 sets, daily range): BP systolic 91–138; BP diastolic 65–97; PULSE 122
[2024-04-29] MEDS: THIAMINE INJECTION 200 MG IV ×3 (00:26→16:03)
[2024-04-29] MEDS: ATIVAN 1 MG PO ×3 (00:26→07:59)
[2024-04-29 00:47] LABS: Glucose - Point of Care 119 mg/dl (70-99)
--- NOTE | 2024-04-29 01:24 | PTCARENOTE ---
Pt continues on MSAS, scoring between a 3-5. Pt standby for brp. Pt had no complaints at this time. Call curiel within reach. Bed alarm on. Assessment care and vitals as charted.
[2024-04-29 04:35] LABS: Hematocrit 44.5 % (39.0-52.0); Mean Corpuscular Hgb 31.6 pg (27.0-31.0); Mean Corpuscular Volume 87.9 fL (80.0-94.0); Mean Platelet Volume 12.4 fL (7.4-10.4); Platelet Count 53 10^3/uL (130-400); Red Blood Cell Count 5.06 10^6/uL (4.70-6.10); Red Cell Dist. Width 12.8 % (11.5-14.5); White Blood Cell Count 5.7 10^3/uL (4.8-10.8)
[2024-04-29 04:50] LABS: AST (SGOT) 321 U/L (17-59); Albumin 4.1 g/dl (3.5-5.0); Alkaline Phosphatase 186 U/L (38-126); Blood Urea Nitrogen 14 mg/dl (9-20); Calcium 9.6 mg/dl (8.4-10.2); Carbon Dioxide 31 mmol/L (22-30); Chloride 89 mmol/L (98-107); Estimated Creatinine Clearance > 125 ml/min; Glucose 116 mg/dl (70-99); Potassium 3.1 mmol/L (3.5-5.1); Sodium 134 mmol/L (135-145); Total Bilirubin 7.6 mg/dl (0.2-1.3); Total Protein 6.8 g/dl (6.3-8.2); eGFR > 60.00
[2024-04-29 05:01] LABS: ALT (SGPT) 290 U/L (0-50)
[2024-04-29] MEDS: KCL 40 MEQ PO (05:39)
[2024-04-29] MEDS: NORVASC 10 MG PO (07:58)
[2024-04-29] MEDS: GLUCOPHAGE 500 MG PO ×2 (07:58→16:03)
[2024-04-29] MEDS: FOLVITE 1 MG PO (07:59)
[2024-04-29] MEDS: TOPROL XL 50 MG PO (07:59)
[2024-04-29] MEDS: PHENOBARBITAL 97.5 MG IV (07:59)
[2024-04-29 08:20] LABS: Glucose - Point of Care 113 mg/dl (70-99)
--- NOTE | 2024-04-29 08:58 | W.PN.HOSP.TC ---
Today's Communication/Plan
-
transfer med/surg
continue phenobarb/ativan protocol
possible d/c tomorrow
Assessment / Plan
Assessment / Plan
1. Alcohol withdrawal
Alcohol use disorder
-Patient drinks 1 bottle of wine every day, last drink on Friday evening.
-Blood alcohol level of 21
-Patient was tachycardic/hypotensive/tremulous in ER.
-MSAS scores reviewed, controlled on phenobarb, continue taper course
-BCARES evaluated and patient opted for AA only.
2. Hypokalemia
-Magnesium within normal limit
-replaced again with 40meq
3. Elevated total bilirubin - Trending down
Acute transaminitis/Alcoholic hepatitis - Improving
-ALT 477 AST 671 Tbilli 5.9
-INR normal. Discriminant factor 10. No indication for steroids
-Liver and abdominal ultrasound, showing hepatomegaly from hepatic steatosis only
4. Elevated lipase
-No abd pain/n/v overnight
-maintain on LF diet.
5. Pre-diabetic
-Hbg a1c of 6.2
-Started on metformin/ISS
6. Anion gap metabolic acidosis - Resolved
-Presuming alcoholic ketoacidosis related
-resolved with oral bicarb dosing.
7. Hyponatremia
-Suspected euvolemic with alcohol use
-monitor
8. Paroxysmal atrial fibrillation
-Not on anticoagulation therapy, EKG showing sinus tachycardia
-Continue home dose of Toprol-XL 50mg/d
9. Generalized weakness/balance problem
-PT OT evaluation once out of alcohol withdrawal
10. Hyperlipidemia
-Hold rosuvastatin for now as liver enzymes elevated
DVT PPX - lovenox
Full code
Anticipated Discharge: Within 24 hours
Subjective/Interval History
-
Date of Service: April 29, 2024
patient subjectively feeling better
no n/v
remains tachycardic
Objective Data
-
Labs:
Laboratory Results
04/29/24
04:08
WBC 5.7
Hgb 16.0
Hct 44.5
Plt Count 53 L
Sodium 134 L
Potassium 3.1 L
Chloride 89 L
Carbon Dioxide 31 H
BUN 14
Creatinine 0.7
Glucose 116 H
Calcium 9.6
Total Bilirubin 7.6 H
AST 321 H
ALT 290 H
Alkaline Phosphatase 186 H
Vital Signs:
Vital Signs
Temp Pulse Resp BP Pulse Ox
98.0 F 120 18 126/97 95
04/29/24 08:35 04/29/24 07:59 04/29/24 06:00 04/29/24 07:59 04/29/24 08:00
I&O
04/28/24 04/29/24 04/30/24
06:59 06:59 06:59
Intake Total 1010 / 1010 2120 / 2120
Output Total 1350 / 1350 1000 / 1000
Balance -340 / -340 1120 / 1120
Review of Systems
-
Respiratory: Reports No Symptoms
Cardiac: Reports No Symptoms
Abdomen/GI: Reports No Symptoms
Physical Exam
-
General: No Apparent Distress
HEENT: Negative Oxygen
Skin: Negative Rash
Neuro: Awake, Alert, Oriented, Nonfocal/Grossly Intact and Other (Tremulous)
Psych: Calm
[2024-04-29 11:46] LABS: Glucose - Point of Care 133 mg/dl (70-99)
--- NOTE | 2024-04-29 13:32 | CM ---
Patient with Hx alcohol use disorder. Tox screen noted. Room air. MSAS 5 ---> 3 today per nursing. Receiving PO Phenobarb with taper, PO Ativan prn. Per nursing; ambulatory in room. Per MD notes, possible d/c tomorrow.
As per prior CM notes, patient had declined inpatient or outpatient referrals/resources per [facility]ARES.
Plan home.
--- NOTE | 2024-04-29 15:38 | PTCARENOTE ---
Patient AOx3. Patient can be forgetful and anxious at times. Bed alarm and chair alarm in place and audible. MSAS completed per order. Medication provided to patient per MSAS score PRN. Patient OOB and ambulating in hallway with assist x1. Patient
on RA with SpO2 greater than 92%. Sinus tachy with occasional PVC's on monitor. B/L eyes are jaundice. Call curiel within reach, bed in lowest position and call curiel within reach.
[2024-04-29] MEDS: LUMINAL 64.8 MG PO ×2 (16:03→21:20)
--- NOTE | 2024-04-29 16:35 | PTCARENOTE ---
1630: Verbal report given to 4E nurse Kirill. Patient transported via wheelchair to 4E. Patient belongings sent with patient.
[2024-04-29 18:15] LABS: Glucose - Point of Care 158 mg/dl (70-99)
[2024-04-29 21:15] LABS: Glucose - Point of Care 169 mg/dl (70-99)
--- NOTE | 2024-04-29 21:29 | PTCARENOTE ---
Patient visibly aggravated and asking 'why someone would just come in and stick his finger when he's not even diabetic and just drank a soda.' Upon further chart review this nurse informed pt. that they are monitoring his blood sugars and providing
insulin as he is pre-diabetic. Pt. disagreed. Will f/u and pass on to AM shift that pt. would benefit from education by visual educator. Pt. stated that he's 'a little pissed that they are just checking his sugars' and that 'no one will be doing
that again for the rest of the time that I'm here.' Pt. was then again educated regarding his right to refuse while in the hospital. Pt. stated that he understood. Pt. does not want to have blood sugars monitored while admitted. Plan of care
continues.
[2024-04-30] MEDS: THIAMINE INJECTION 200 MG IV ×2 (00:21→07:59)
[2024-04-30 07:50] LABS: Glucose - Point of Care 112 mg/dl (70-99)
[2024-04-30] MEDS: NORVASC 10 MG PO (08:00)
[2024-04-30] MEDS: GLUCOPHAGE 500 MG PO (08:01)
[2024-04-30] MEDS: FOLVITE 1 MG PO (08:01)
[2024-04-30] MEDS: TOPROL XL 50 MG PO (08:01)
[2024-04-30] MEDS: LUMINAL 64.8 MG PO (08:01)
[2024-04-30 08:13] VITALS: BP 123/81
[2024-04-30 08:13] LABS: ALT (SGPT) 229 U/L (0-50); AST (SGOT) 221 U/L (17-59); Albumin 3.8 g/dl (3.5-5.0); Alkaline Phosphatase 197 U/L (38-126); Blood Urea Nitrogen 9 mg/dl (9-20); Calcium 9.7 mg/dl (8.4-10.2); Carbon Dioxide 31 mmol/L (22-30); Chloride 91 mmol/L (98-107); Estimated Creatinine Clearance > 125 ml/min; Glucose 112 mg/dl (70-99); Potassium 3.1 mmol/L (3.5-5.1); Sodium 134 mmol/L (135-145); Total Bilirubin 6.2 mg/dl (0.2-1.3); Total Protein 6.4 g/dl (6.3-8.2); eGFR > 60.00
[2024-04-30 08:28] LABS: Hematocrit 42.3 % (39.0-52.0); Hemoglobin 15.1 g/dL (13.0-18.0); Mean Corp Hgb Conc. 35.7 g/dL (33.0-37.0); Mean Corpuscular Hgb 31.9 pg (27.0-31.0); Mean Corpuscular Volume 89.4 fL (80.0-94.0); Platelet Count 77 10^3/uL (130-400); Red Blood Cell Count 4.73 10^6/uL (4.70-6.10); Red Cell Dist. Width 12.6 % (11.5-14.5); White Blood Cell Count 4.8 10^3/uL (4.8-10.8)
[2024-04-30] MEDS: KLOR-CON 40 MEQ PO (10:09)
--- NOTE | 2024-04-30 16:08 | W.PN.HOSP.TC ---
Today's Communication/Plan
-
discharge home
Assessment / Plan
Assessment / Plan
1. Alcohol withdrawal
Alcohol use disorder
-Patient drinks 1 bottle of wine every day, last drink on Friday evening.
-Blood alcohol level of 21
-Patient was tachycardic/hypotensive/tremulous in ER.
-MSAS scores reviewed and out of alcohol withdrawal, will provide tapering course of phenobarbital. Patient instructed not to drink while on phenobarbital or stop taking phenobarbital if have relapse.
-BCARES evaluated and patient opted for AA only.
2. Hypokalemia
-Magnesium within normal limit
-encouraged to have increase K intake in diet.
3. Elevated total bilirubin - Trending down
Acute transaminitis/Alcoholic hepatitis - Improving
-ALT 477 AST 671 Tbilli 5.9 at admit
-INR normal. Discriminant factor 10. No indication for steroids
-Liver and abdominal ultrasound, showing hepatomegaly from hepatic steatosis only
-will need repeat labs with f/u on family physician office.
4. Elevated lipase
-No abd pain/n/v overnight
-maintain on LF diet.
5. Pre-diabetic
-Hbg a1c of 6.2
-Started on metformin/ISS
6. Anion gap metabolic acidosis - Resolved
-Presuming alcoholic ketoacidosis related
-resolved with oral bicarb dosing.
7. Hyponatremia
-Suspected euvolemic with alcohol use
-monitor
8. Paroxysmal atrial fibrillation
-Not on anticoagulation therapy, EKG showing sinus tachycardia
-Continue home dose of Toprol-XL 50mg/d
9. Generalized weakness/balance problem
-PT OT evaluation once out of alcohol withdrawal
Hyperlipidemia
Chronic thrombocytopenia
DVT PPX - lovenox
Full code
d/c home
Anticipated Discharge: Today
Subjective/Interval History
-
Date of Service: April 30, 2024
no complains overnight
feeling better
Objective Data
-
Labs:
Laboratory Results
04/30/24
07:21
WBC 4.8
Hgb 15.1
Hct 42.3
Plt Count 77 L D
Sodium 134 L
Potassium 3.1 L
Chloride 91 L
Carbon Dioxide 31 H
BUN 9
Creatinine 0.6 L
Glucose 112 H
Calcium 9.7
Total Bilirubin 6.2 H
AST 221 H
ALT 229 H
Alkaline Phosphatase 197 H
Vital Signs:
Vital Signs
Temp Pulse Resp BP Pulse Ox
98.6 F 102 18 123/81 98
04/30/24 08:13 04/30/24 08:13 04/30/24 08:13 04/30/24 08:13 04/30/24 08:13
I&O
04/29/24 04/30/24 05/01/24
06:59 06:59 06:59
Intake Total 2120 / 2120 720 / 720
Output Total 1000 / 1000 400 / 400
Balance 1120 / 1120 320 / 320
Review of Systems
-
Respiratory: Reports No Symptoms
Cardiac: Reports No Symptoms
Abdomen/GI: Reports No Symptoms
Physical Exam
-
General: No Apparent Distress
HEENT: Negative Oxygen
Skin: Negative Rash
Neuro: Awake, Alert, Oriented and Nonfocal/Grossly Intact
Psych: Calm
== END 2024-04-30 11:18 | disposition home or self-care (01) | DRG 433 ==
LOC: 4 EAST ACU 09:11
PROVIDERS: ADMITTING PHYSICIAN Hospitalist; EMERGENCY PHYSICIAN Emergency Medicine
DX: K70.10 Alcoholic hepatitis without ascites (principal); E87.1 Hypo-osmolality and hyponatremia; F10.139 Alcohol abuse with withdrawal, unspecified; E87.29 Other acidosis; I10 Essential (primary) hypertension; E78.00 Pure hypercholesterolemia, unspecified; I48.0 Paroxysmal atrial fibrillation; K21.9 Gastro-esophageal reflux disease without esophagitis; R73.03 Prediabetes; E87.6 Hypokalemia; R74.01 Elevation of levels of liver transaminase levels; E66.3 Overweight; Y90.1 Blood alcohol level of 20-39 mg/100 ml; Z68.33 Body mass index [BMI] 33.0-33.9, adult; Z79.899 Other long term (current) drug therapy; Z87.891 Personal history of nicotine dependence
CPT/HCPCS: 76700; 80048; 80053; 80306; 80307; 81003; 81015; 82077; 82962; 83036; 83690; 83735; 84100; 85025; 85027; 85610; 93005; 96374; 96375; 97163; 97166; 97530; 99285

== ENCOUNTER 2025-04-30 00:11 | Inpatient (IN) | payer OTHER, SELFPAY ==
[2025-04-29] VITALS (7 sets, daily range): BP systolic 132–184; BP diastolic 101–117
[2025-04-29] MEDS: ATIVAN 1 MG IV (21:52)
[2025-04-29] MEDS: ZOFRAN 4 MG IV (21:52)
[2025-04-29] MEDS: NSS 1000 IV (22:00)
--- NOTE | 2025-04-29 22:08 | ED.GENMED ---
History of Present Illness
<SOULEYMANE Ford - Last Filed: 04/29/25 23:52>
General
Chief Complaint: Alcohol Problem
Source: patient
Exam Limitations: none
Time Seen by Provider: 04/29/25 22:01
Nursing documentation reviewed up to this point in time: agreed with
History of Present Illness
History of Present Illness:
Patient is a 51-year-old male with history of alcohol use disorder presents to the ER for evaluation of alcohol withdrawal. Patient reports he was on a binge of drinking alcohol for the past 2 weeks and had last drink at 7am this morning. Since
then he feels that he is in withdrawal has the shakes coughing and uncontrolled nausea and vomiting. He denies any visual hallucinations. He does report his vision is little blurry. He is not interested in inpatient treatment.
Past History
<SOULEYMANE Ford - Last Filed: 04/29/25 23:52>
Past History
ED Past Medical History: HTN, Hypercholesterolemia, Psychiatric (Anxiety, alcohol abuse) and Other (ETOH abuse/DTs/liver disease)
ED Past Surgical History: Orthopedic
Social History
Tobacco: Former smoker
Alcohol: Chronic alcoholic
Drug: None
Personal: Single
Living: alone
Phy Exam
<SOULEYMANE Ford - Last Filed: 04/29/25 23:52>
General Physical Exam
General Presentation: no apparent distress
General age: appears stated age
General Skin: warm and dry
General Habitus: normal
General Mental: alert
General Hydration: dry mucous membranes
Cardiovascular Exam
Cardiovascular Exam: tachycardia
Pulmonary Exam
Pulmonary Exam: lungs clear and no respiratory distress
Neurological Exam
Neurological Exam: alert, oriented x3, no motor deficits, no sensory deficits and other (Positive tremors)
Musculoskeletal Exam
Musculoskeletal Exam: full ROM
Skin Exam
Skin Exam: normal color and warm/dry
Psychiatric Exam
Psychiatric Exam: normal mood/affect
Scores
<SOULEYMANE Ford - Last Filed: 04/29/25 23:52>
Withdrawal Assessment of Alcohol
Withdrawal Assessment Completed?: Yes
Nausea and Vomiting: No nausea and no vomiting
Tactile Disturbances: None
Tremor: Moderate, with patient's arms extended
Auditory Disturbances: Not present
Paroxysmal Sweats: No sweat visible
Visual Disturbances: Not present
Anxiety: No anxiety, at ease
Headache, Fullness in Head: Not present
Agitation: Normal activity
Orientation and clouding of sensorium: Oriented and can do serial additions
Total CIWA Score: 4
Alcohol Withdrawal Medication Recommendation: Equal to MSAS Score 0-4. Monitor & re-assess q2hrs, NO MEDICATION NEEDED
Course
<SOULEYMANE Ford - Last Filed: 04/29/25 23:52>
Orders/Labs/Results
Orders:
Orders
04/29/25 21:41
Lorazepam [Ativan] 2 mg .ROUTE .STK-MED ONE
04/29/25 21:43
Ondansetron Injectable [Zofran] 4 mg .ROUTE .STK-MED ONE
04/29/25 21:51
Lorazepam [Ativan] 1 mg IV NOW STA
04/29/25 21:52
0.9% Sodium Chloride 1000 ml [Nss] 1,000 ml IV BOLUS
Ondansetron Injectable [Zofran] 4 mg IV NOW STA
04/29/25 21:55
Complete Blood Count/With Diff Urgent
Comprehensive Metabolic Panel Urgent
Magnesium Urgent
04/29/25 22:11
Lorazepam [Ativan] 2 mg IV NOW STA
04/29/25 22:22
Electrocardiogram (*1) Stat
Reason for Study: Other
Other Reason for Exam: chest pain
Cardiac Monitoring- Treatment ONCE
EKG- Treatment ONCE
04/29/25 23:00
0.9% Sodium Chloride 1000 ml [Nss] 1,000 ml Mvi, Adult [Multivitamin] 10 ml Thiamine Injection 100 mg IV 150 mls/hr
04/29/25 23:08
Lorazepam [Ativan] 2 mg IV NOW STA
04/29/25 23:25
Potassium Chloride [KCl] 40 meq 0.9% Sodium Chloride 250 ml [Nss] 250 ml IV NOW
Abnormal Lab Results
04/29/25
21:55
Plt Count 99 L 10^3/uL
(130-400)
Abs Immat Gran (auto) 0.1 H 10^3/uL
(0-0.05)
Absolute Neuts (auto) 6.7 H 10^3/uL
(1.4-6.5)
Absolute Monos (auto) 1.2 H 10^3/uL
(0.1-0.6)
Immature Gran % 0.6 H %
(0-0.5)
Lymphocytes % 17.8 L %
(20.5-51.1)
Monocytes % 12.1 H %
(1.7-9.3)
Sodium 132 L mmol/L
(135-145)
Potassium 3.1 L mmol/L
(3.5-5.1)
Chloride 95 L mmol/L
(98-107)
Carbon Dioxide 20 L mmol/L
(22-30)
Creatinine 0.5 L mg/dL
(0.7-1.3)
Glucose 135 H mg/dl
(70-99)
Total Bilirubin 1.5 H mg/dl
(0.2-1.3)
04/29/25 21:55
04/29/25 21:55
Vital Signs
Initial and Last Documented VS:
Initial Vital Signs
Temp Pulse Resp BP Pulse Ox
98.3 F 138 18 184/117 97
04/29/25 21:26 04/29/25 21:26 04/29/25 21:26 04/29/25 21:26 04/29/25 21:26
Last Documented Vital Signs
Temp Pulse Resp BP Pulse Ox
98.3 F 122 29 146/109 93
04/29/25 21:26 04/29/25 23:40 04/29/25 23:40 04/29/25 23:40 04/29/25 23:40
Director Of Critical Care consulted with Physician
Director Of Critical Care consulted with physician?: Yes
Name of Physician Consulted: Nabil
<Jaime Hernández, DO - Last Filed: 04/29/25 23:35>
Orders/Labs/Results
Orders:
Orders
04/29/25 21:41
Lorazepam [Ativan] 2 mg .ROUTE .STK-MED ONE
04/29/25 21:43
Ondansetron Injectable [Zofran] 4 mg .ROUTE .STK-MED ONE
04/29/25 21:51
Lorazepam [Ativan] 1 mg IV NOW STA
04/29/25 21:52
0.9% Sodium Chloride 1000 ml [Nss] 1,000 ml IV BOLUS
Ondansetron Injectable [Zofran] 4 mg IV NOW STA
04/29/25 21:55
Complete Blood Count/With Diff Urgent
Comprehensive Metabolic Panel Urgent
Magnesium Urgent
04/29/25 22:11
Lorazepam [Ativan] 2 mg IV NOW STA
04/29/25 22:22
Electrocardiogram (*1) Stat
Reason for Study: Other
Other Reason for Exam: chest pain
Cardiac Monitoring- Treatment ONCE
EKG- Treatment ONCE
04/29/25 23:00
0.9% Sodium Chloride 1000 ml [Nss] 1,000 ml Mvi, Adult [Multivitamin] 10 ml Thiamine Injection 100 mg IV 150 mls/hr
04/29/25 23:08
Lorazepam [Ativan] 2 mg IV NOW STA
04/29/25 23:25
Potassium Chloride [KCl] 40 meq 0.9% Sodium Chloride 250 ml [Nss] 250 ml IV NOW
Abnormal Lab Results
04/29/25
21:55
Plt Count 99 L 10^3/uL
(130-400)
Abs Immat Gran (auto) 0.1 H 10^3/uL
(0-0.05)
Absolute Neuts (auto) 6.7 H 10^3/uL
(1.4-6.5)
Absolute Monos (auto) 1.2 H 10^3/uL
(0.1-0.6)
Immature Gran % 0.6 H %
(0-0.5)
Lymphocytes % 17.8 L %
(20.5-51.1)
Monocytes % 12.1 H %
(1.7-9.3)
Sodium 132 L mmol/L
(135-145)
Potassium 3.1 L mmol/L
(3.5-5.1)
Chloride 95 L mmol/L
(98-107)
Carbon Dioxide 20 L mmol/L
(22-30)
Creatinine 0.5 L mg/dL
(0.7-1.3)
Glucose 135 H mg/dl
(70-99)
Total Bilirubin 1.5 H mg/dl
(0.2-1.3)
04/29/25 21:55
04/29/25 21:55
Vital Signs
Initial and Last Documented VS:
Initial Vital Signs
Temp Pulse Resp BP Pulse Ox
98.3 F 138 18 184/117 97
04/29/25 21:26 04/29/25 21:26 04/29/25 21:26 04/29/25 21:26 04/29/25 21:26
Last Documented Vital Signs
Temp Pulse Resp BP Pulse Ox
98.3 F 122 29 146/109 93
04/29/25 21:26 04/29/25 23:40 04/29/25 23:40 04/29/25 23:40 04/29/25 23:40
<SOULEYMANE Ford - Last Filed: 04/29/25 23:52>
MDM/Problems Addressed
Differential Diagnosis Includes:
Not limited to acute alcohol withdrawal dehydration electrolyte abnormality
MDM/Problems Addressed:
As documented patient is a 54-year-old male with alcohol use disorder presents with acute alcohol withdrawal. Patient is tachycardic complaining of nausea and vomiting tremors. He has obvious tremors on exam. Patient was given multiple doses of
Ativan here will need admission. He is afebrile and his white count is normal his potassium is low at 3.1 banana bag ordered along with IV fluids. Sodium minimally low patient was eval by ED physician admitted to the hospital service.
I did question patient however he does not want rehab.
Chronic conditions affecting care:
alcohol use disorder
<SOULEYMANE Ford - Last Filed: 04/29/25 23:52>
*Pulse Oximetry
SaO2: 97
Oxygen Mode of Delivery: Room air
Patient hypoxic: no
<Jaime Hernández DO - Last Filed: 04/29/25 23:35>
*Critical Care Note
Total Time (30-74mins, 75-104mins- exclusive of procedures): 30 minutes
ED Attending Note
<SOULEYMANE Ford - Last Filed: 04/29/25 23:52>
-
Portions of this chart may have been created with voice recognition software.� Occasional wrong word or��sound alike� substitutions may have occurred due to the inherent limitations of voice recognition software.
<Jaime Hernández, DO - Last Filed: 04/29/25 23:35>
ED Attending Note
Patient seen and examined by attending physician: Yes
I performed the substantive portion of visit, reviewed & personally made and approve the management plan that is documented in note by myself or ARACELI.: Yes
ED Attending Note:
54-year-old male with significant alcohol withdrawal. Tremulous, tachycardic, hypertensive. Continue IV benzodiazepines. Banana bag ordered. Moderate to high risk. Admit
Discharge Plan
Departure
Patient Disposition: Admit
Date of Disposition: 04/29/25
Time of Disposition: 23:47
Admit to: ICU
Admit to doctor: hospitalist
Presentation/result/management discussed w/ accepting MD/DO: Hospitalist
Patient with high blood pressure during this ER visit?: Yes
Condition: Fair
Covid-19: Not Applicable
Discharge Problem:
acute alcohol withdrawl, Alcohol use disorder, Acute hypokalemia
Prescriptions:
No Action
rosuvastatin 20 MG tablet
20 mg PO DAILY
metoprolol succinate 100 mg tablet extended release 24 hr
50 mg PO DAILY
folic acid 1 mg Tablet
1 mg PO DAILY
furosemide [Lasix] 40 mg Tablet
40 mg PO DAILYPRN PRN (Reason: fluid retension)
losartan 50 mg tablet
50 mg PO DAILY Qty: 30 1RF
metformin 500 mg tablet
500 mg PO BID Qty: 60 1RF
Referrals:
NONE,* [Family Provider, Internal Medicine]
Interventions
Interventions:
*Risk Screen - Suicide Last Done: 04/29/25 21:27
*General Assessment Last Done: 04/29/25 21:58
*Neglect/Abuse Screening Last Done: 04/29/25 21:27
*ED- Fall Risk Assessment Last Done: 04/29/25 21:58
*ED COVID-19 Vaccine History Last Done: 04/29/25 21:58
*ED Influenza Vaccine History Last Done: 04/29/25 21:58
ED- Neurological Assessment Last Done: 04/29/25 21:59
ED-Psychological Assessment Last Done: 04/29/25 21:59
Discharge Date and Time
Print Language: KYRGYZ
[2025-04-29 22:19] LABS: Hematocrit 44.1 % (39.0-52.0); Hemoglobin 15.5 g/dL (13.0-18.0); Mean Corp Hgb Conc. 35.1 g/dL (33.0-37.0); Mean Corpuscular Volume 81.8 fL (80.0-94.0); Nucleated Red Blood Cells % 0 % (-); Platelet Count 99 10^3/uL (130-400); Red Cell Dist. Width 13.2 % (11.5-14.5)
[2025-04-29 22:20] LABS: ALT (SGPT) 33 U/L (0-50); AST (SGOT) 45 U/L (17-59); Albumin 5.0 g/dl (3.5-5.0); Alkaline Phosphatase 103 U/L (38-126); Blood Urea Nitrogen 12 mg/dl (9-20); Calcium 9.1 mg/dl (8.4-10.2); Carbon Dioxide 20 mmol/L (22-30); Chloride 95 mmol/L (98-107); Glucose 135 mg/dl (70-99); Magnesium 1.8 mg/dl (1.6-2.3); Potassium 3.1 mmol/L (3.5-5.1); Sodium 132 mmol/L (135-145); Total Protein 8.1 g/dl (6.3-8.2); eGFR > 60.00
[2025-04-29] MEDS: ATIVAN 2 MG IV ×2 (22:28→23:43)
[2025-04-29] MEDS: MULTIVITAMIN 1011 MG IV (23:47)
[2025-04-29] MEDS: MULTIVITAMIN 1011 ML IV (23:47)
[2025-04-29] MEDS: KCL 270 MEQ IV (23:54)
[2025-04-30] VITALS (18 sets, daily range): BP systolic 132–167; BP diastolic 89–116; BMI 33.5
--- NOTE | 2025-04-30 00:07 | HPS.HSE ---
Family Physician
-
Family Physician: * NONE
Chief Complaint
-
N/V, Shakes / Tremors
History of Present Illness
Patient is a 54y M with PMH significant for hypertension, DM-II and alcohol use disorder who presents to ED complaining of symptoms of alcohol withdrawal since this AM. Patient states that he has been drinking excessively for the past 2-3 weeks.
He has been drinking about 2 bottles of wine every day in that time period. He states that his last drink was around 7AM this morning. Since that time, patient has developed nausea with non-bloody emesis, sweats, shakes and tremors. He notes
prior h/o alcohol withdrawal episodes but denies any previous seizure activity, etc. he has been intubated in the past - but he states this was due to pneumonia not alcohol withdrawal (prior records report intubation secondary to DTs).
Medical History
Past Medical History
Past Medical History: Reports Other
Additional Past Medical History:
Paroxysmal Atrial Fibrillation
Essential Hypertension
Hyperlipidemia
Generalized Anxiety Disorder
GERD
Past Surgical History: Reports Other
Additional Past Surgical History:
T&A
Hand Surgery
Social History
Tobacco: Former Smoker
Alcohol: Daily
Drug: None
Personal: Single
Living: Alone
Family History
Family History: Not pertinent
Allergies / Home Medications
Allergies reflects when Allergies were last updated in [employer].
Home Medications with original date entered in [employer]
Allergy/Medication List:
Allergies
Allergy/AdvReac Type Severity Reaction Status Date / Time
ragweed pollen Allergy Unknown Verified 02/17/24 04:49
Home Medications
No Meds [No Current Medications] 04/30/25
Review of Systems
-
History Source: Patient
A 12 point ROS was completed and negative except as noted: Yes
Constitutional: Reports Fatigue and Chills; Denies Fever
EENT: Denies Sore Throat
Respiratory: Denies Cough or Trouble Breathing
Cardiac: Reports Diaphoresis; Denies Chest Pain or Palpitations
Abdomen/GI: Reports Nausea and Vomiting; Denies Abdominal Pain or Diarrhea
: Denies Dysuria, Frequency or Flank Pain
Musculoskeletal: Denies Joint Pain or Edema
Neurological: Reports Headache; Denies Dizzy
Psych: Reports Anxiety; Denies Depression
Physical Exam
Vital Signs
Vital Signs
Temp Pulse Resp BP Pulse Ox
98.3 F 122 29 146/109 93
04/29/25 21:26 04/29/25 23:40 04/29/25 23:40 04/29/25 23:40 04/29/25 23:40
Physical Exam
General: Other (54y M with current mild diaphoresis, tremulousness, flushed appearance.)
HEENT: Other (Dry MM. Neck supple.)
Respiratory: Clear; No Wheezes, Rales or Rhonchi
Cardiac: S1/S2 and Tachycardia; No Murmur
GI: Soft, Non Tender, Non Distended and Normal Bowel Sounds
Musculoskeletal: No Clubbing, No Cyanosis and No Edema
Neuro: AO x 3
Laboratory Results
-
04/29/25 21:55
04/29/25 21:55
Laboratory Results
Total Bilirubin 1.5 mg/dl (0.2-1.3) H 04/29/25 21:55
AST 45 U/L (17-59) 04/29/25 21:55
ALT 33 U/L (0-50) 04/29/25 21:55
Alkaline Phosphatase 103 U/L (38-126) 04/29/25 21:55
Impression/Plan
-
A/P: Patient is a 54y M with PMH significant for hypertension, DM-II and alcohol use disorder who presents to ED complaining of N/V and tremors / shakes since this AM.
Alcohol Withdrawal Syndrome
Alcohol Use Disorder
Hyponatremia
Hypokalemia
Anion Gap Metabolic Acidosis secondary to alcohol use disorder
- Admit for further evaluation and treatment.
- Supportive care with IVFs, antiemetics, etc.
- Replace electrolytes and follow BMP for improvement.
- Phenobarb taper given prior reported DTs / severe withdrawal symptoms.
- Follow MSAS and supplement with BZDs as needed.
- Follow for clinical improvement.
- Consider inpatient / outpatient alcohol treatment programs once acute symptoms are improved.
Benign Hypertension
- Presently with elevated BP and pulse due to acute alcohol withdrawal syndrome.
- Previously on multiple medications for BP control - no longer on any Rx medications.
- Follow for improvement and resume / restart Toprol, losartan, etc if needed for additional BP control.
DM-II
- Previously on metformin but no longer taking this either.
- Follow glucose and cover with SSI as needed.
- Update A1C.
Paroxysmal Atrial Fibrillation
- Listed in history - ? related to prior episodes of alcohol overuse.
- Not currently on any medications and not previously on any OAC.
- Monitor on telemetry (initial EKG shows regular tachycardia).
DVT Prophylaxis: SCDs
Code Status: Full
[2025-04-30] MEDS: ATIVAN 1 MG IV (02:07)
[2025-04-30] MEDS: PHENOBARBITAL 104 MG IV (04:01)
[2025-04-30] MEDS: KCL 1020 MEQ IV (04:03)
[2025-04-30 04:36] LABS: Urine Character Clear (Clear)
[2025-04-30 05:27] LABS: Urine Squamous Cell 0-2 /LPF (Few)
[2025-04-30 05:29] LABS: Urine White Cell 0-2 /HPF (0-5)
[2025-04-30 07:43] LABS: Glucose - Point of Care 105 mg/dl (70-99)
[2025-04-30] MEDS: PHENOBARBITAL 97.5 MG IV ×3 (08:02→21:36)
[2025-04-30] MEDS: FOLVITE 1 MG PO (08:02)
[2025-04-30] MEDS: THIAMINE INJECTION 200 MG IV ×2 (08:07→15:38)
[2025-04-30 08:20] LABS: Hematocrit 41.6 % (39.0-52.0); Hemoglobin 14.1 g/dL (13.0-18.0); Mean Corp Hgb Conc. 33.9 g/dL (33.0-37.0); Mean Corpuscular Volume 84.4 fL (80.0-94.0); Red Cell Dist. Width 13.2 % (11.5-14.5)
[2025-04-30 08:31] LABS: ALT (SGPT) 28 U/L (0-50); AST (SGOT) 36 U/L (17-59); Albumin 4.1 g/dl (3.5-5.0); Alkaline Phosphatase 80 U/L (38-126); Blood Urea Nitrogen 8 mg/dl (9-20); Calcium 8.4 mg/dl (8.4-10.2); Carbon Dioxide 25 mmol/L (22-30); Chloride 102 mmol/L (98-107); Estimated Creatinine Clearance > 125 ml/min; Glucose 102 mg/dl (70-99); Potassium 3.7 mmol/L (3.5-5.1); Sodium 135 mmol/L (135-145); Total Protein 6.6 g/dl (6.3-8.2); eGFR > 60.00
[2025-04-30 09:08] LABS: Platelet Count 67 10^3/uL (130-400)
[2025-04-30] MEDS: ATIVAN 1 MG PO ×2 (10:03→20:41)
[2025-04-30 10:35] LABS: Glycohemoglobin (HgbA1c) 5.5 % (4.0-5.9)
[2025-04-30] MEDS: APRESOLINE 10 MG IV ×2 (11:10→20:42)
[2025-04-30 12:21] LABS: Glucose - Point of Care 114 mg/dl (70-99)
[2025-04-30] MEDS: KCL IV (12:46)
[2025-04-30] MEDS: NSS with KCL 40 MEQ 1000 IV ×2 (13:10→20:43)
--- NOTE | 2025-04-30 15:06 | CM ---
Alert awake oriented patient who
lives with JAMES Holder in a 2 story home with 1 step to enter and 14 steps to bed/bathroom.He is independent in driving and all ADLs.Offered substance abuse counselling he declined he said 'I made a mistake.'[employer] DIRECTIVE [employer]G GIVEN.He declined
VN .
No VN/SNF hx.
Pharmacy [facility]
PCP he forget name MD in [place]
PLAN Home no needs
[2025-04-30 16:59] LABS: Glucose - Point of Care 124 mg/dl (70-99)
[2025-04-30] MEDS: IMODIUM 2 MG PO (17:20)
--- NOTE | 2025-04-30 17:32 | PTCARENOTE ---
Pt. with loose stool x3 since this afternoon. made aware. Imodium PRN given. Loose stools attributed to current withdrawal. Will continue with current plan of care.
[2025-04-30 21:41] LABS: Glucose - Point of Care 105 mg/dl (70-99)
[2025-05-01] MEDS: ATIVAN 1 MG PO ×2 (00:34→02:34)
[2025-05-01] MEDS: THIAMINE INJECTION 200 MG IV ×4 (00:34→23:36)
[2025-05-01 02:45] VITALS: BP 147/110
[2025-05-01 06:00] VITALS: BMI 32.0
[2025-05-01 07:00] VITALS: BP 141/100
[2025-05-01 07:33] LABS: Glucose - Point of Care 108 mg/dl (70-99)
[2025-05-01] MEDS: PHENOBARBITAL 97.5 MG IV (08:14)
[2025-05-01] MEDS: FOLVITE 1 MG PO (08:14)
[2025-05-01 09:19] LABS: ALT (SGPT) 26 U/L (0-50); AST (SGOT) 36 U/L (17-59); Albumin 4.3 g/dl (3.5-5.0); Alkaline Phosphatase 78 U/L (38-126); Blood Urea Nitrogen 7 mg/dl (9-20); Calcium 9.2 mg/dl (8.4-10.2); Carbon Dioxide 21 mmol/L (22-30); Chloride 102 mmol/L (98-107); Estimated Creatinine Clearance > 125 ml/min; Glucose 142 mg/dl (70-99); Potassium 3.7 mmol/L (3.5-5.1); Sodium 131 mmol/L (135-145); Total Protein 7.1 g/dl (6.3-8.2); eGFR > 60.00
[2025-05-01 11:43] LABS: Glucose - Point of Care 122 mg/dl (70-99)
--- NOTE | 2025-05-01 12:23 | W.PN.HOSP.TC ---
Today's Communication/Plan
-
see note
Assessment / Plan
Assessment / Plan
Alcohol Withdrawal Syndrome
Alcohol Use Disorder
Hyponatremia - Fluctuating
Hypokalemia - Improved
Anion Gap Metabolic Acidosis secondary to alcohol use disorder
- Admit for further evaluation and treatment.
- Supportive care with IVFs, antiemetics, etc.
- MSAS score reviewed overnight. Phenobarb taper adjusted to switch to oral short taper. Continue as needed Ativan
- Hyponatremia improved yesterday although again showing recurrence today. monitor.
- Discussed help with alcohol use disorder, patient not interested. Patient has been part of AA and will consider resuming
Essential hypertension - uncontrolled
- Uncontrolled pressure likely with alcohol withdrawal
- Previously on multiple medications for BP control - no longer on any Rx medications.
- Resuming Toprol-XL for simultaneous control of heart rate and blood pressure
DM-II
- Previously on metformin but no longer taking this either.
- Follow glucose and cover with SSI as needed.
- HbgA1C 5.5.
Paroxysmal Atrial Fibrillation
- Listed in history - ? related to prior episodes of alcohol overuse.
- Not currently on any medications and not previously on any OAC.
- Monitor on telemetry (initial EKG shows regular tachycardia).
DVT Prophylaxis: SCDs
Code Status: Full
Total time spent ; 54 mins
Remains at risk of further deterioration of alcohol withdrawal and related complication
Anticipated Discharge: 24 - 48 hours
Subjective/Interval History
-
Date of Service: May 01, 2025
Subjective feeling better
not anxious
no nausea/vomiting
diarrhea better
Objective Data
-
Labs:
Laboratory Results
05/01/25
08:29
Sodium 131 L
Potassium 3.7
Chloride 102
Carbon Dioxide 21 L
BUN 7 L
Creatinine 0.6 L
Glucose 142 H
Calcium 9.2
Total Bilirubin 1.8 H
AST 36
ALT 26
Alkaline Phosphatase 78
Vital Signs:
Vital Signs
Temp Pulse Resp BP Pulse Ox
98.3 F 116 19 141/100 96
05/01/25 07:00 05/01/25 07:00 05/01/25 07:00 05/01/25 07:00 05/01/25 09:02
I&O
04/30/25 05/01/25 05/02/25
06:59 06:59 06:59
Intake Total 2003 / 2003 1800 / 1800
Output Total 950 / 950 3425 / 3425
Balance 1054 / 1054 -1625 / -1625
Review of Systems
-
Respiratory: Reports No Symptoms
Cardiac: Reports No Symptoms
Abdomen/GI: Reports No Symptoms
Physical Exam
-
General: No Apparent Distress
HEENT: Negative Oxygen
Skin: Negative Rash
Neuro: Awake, Alert, Oriented and Nonfocal/Grossly Intact
Psych: Calm
[2025-05-01 13:32] VITALS: BP 141/99
[2025-05-01 15:00] VITALS: BP 119/93
[2025-05-01] MEDS: LUMINAL 64.8 MG PO ×2 (15:35→22:05)
[2025-05-01 17:10] LABS: Glucose - Point of Care 129 mg/dl (70-99)
[2025-05-01 21:28] LABS: Glucose - Point of Care 112 mg/dl (70-99)
[2025-05-01 23:00] VITALS: BP 132/93
[2025-05-02 03:20] VITALS: BMI 32.0
[2025-05-02 07:57] VITALS: BP 121/99
--- NOTE | 2025-05-02 08:10 | W.PN.HOSP.TC ---
Today's Communication/Plan
-
Doing well, complete phenobarb, monitor overnight
Anticipated discharge tomorrow morning
Assessment / Plan
Assessment / Plan
Physical Exam
General: No Apparent Distress
HEENT: Negative Oxygen
Cardio: S1 and S2. RRR.
Pulmonary: Clear to Auscultation Bilaterally
Skin: Warm. Dry.
Neuro: Awake, Alert, Oriented and Nonfocal/Grossly Intact
Psych: Calm
Assessment/Plan
Alcohol Withdrawal Syndrome
Alcohol Use Disorder
Hyponatremia - Fluctuating
Hypokalemia - Improved
Anion Gap Metabolic Acidosis secondary to alcohol use disorder
- Supportive care with IVFs, antiemetics, etc.
- MSAS score reviewed overnight. Phenobarb taper adjusted to switch to oral short taper. Continue as needed Ativan -- spoke with clinical pharmacist: the phenobarbital taper can be completely discontinued prior to discharge;
if patient is well enough to go home, patient no longer needs the phenobarb.
- Hyponatremia improved yesterday although again showing recurrence today. monitor.
- Discussed help with alcohol use disorder, patient not interested. Patient has been part of AA and will consider resuming
Essential hypertension - uncontrolled
- Uncontrolled pressure likely with alcohol withdrawal
- Previously on multiple medications for BP control - no longer on any Rx medications.
- Resuming Toprol-XL for simultaneous control of heart rate and blood pressure
DM-II
- Previously on metformin but no longer taking this either.
- Follow glucose and cover with SSI as needed.
- HbgA1C 5.5.
Paroxysmal Atrial Fibrillation
- Listed in history - ? related to prior episodes of alcohol overuse.
- Not currently on any medications and not previously on any OAC.
- Monitor on telemetry (initial EKG showed regular tachycardia).
DVT Prophylaxis: SCDs.
Code Status: Full
Anticipated Discharge: Within 24 hours
Subjective/Interval History
-
Date of Service: May 02, 2025
Patient was seen and examined. He reported feeling well today, and he denied any complaints.
Objective Data
-
Labs:
Laboratory Results
05/02/25
07:29
Sodium Pending
Potassium Pending
Chloride Pending
Carbon Dioxide Pending
BUN Pending
Creatinine Pending
Glucose Pending
Calcium Pending
Vital Signs:
Vital Signs
Temp Pulse Resp BP Pulse Ox
98 F 121 16 121/99 97
05/02/25 07:57 05/02/25 07:57 05/02/25 07:57 05/02/25 07:57 05/02/25 07:57
I&O
05/01/25 05/02/25 05/03/25
06:59 06:59 06:59
Intake Total 1800 / 1800 1919
Output Total 3425 / 3425
Balance -1625 / -1625 1919
[2025-05-02] MEDS: THIAMINE INJECTION 200 MG IV ×3 (08:37→23:36)
[2025-05-02] MEDS: TOPROL XL 25 MG PO (08:37)
[2025-05-02] MEDS: FOLVITE 1 MG PO (08:37)
[2025-05-02] MEDS: LUMINAL 64.8 MG PO (08:37)
[2025-05-02 08:56] LABS: Blood Urea Nitrogen 14 mg/dl (9-20); Calcium 9.0 mg/dl (8.4-10.2); Carbon Dioxide 19 mmol/L (22-30); Chloride 102 mmol/L (98-107); Estimated Creatinine Clearance > 125 ml/min; Glucose 129 mg/dl (70-99); Potassium 3.7 mmol/L (3.5-5.1); Sodium 133 mmol/L (135-145); eGFR > 60.00
[2025-05-02 15:44] VITALS: BP 121/77
[2025-05-02] MEDS: LUMINAL 32.4 MG PO ×2 (16:00→23:36)
[2025-05-02 17:19] LABS: Glucose - Point of Care 116 mg/dl (70-99)
[2025-05-02 23:23] VITALS: BP 133/84
[2025-05-02] MEDS: TUMS CHEWABLE TABLET 200 MG PO (23:33)
[2025-05-02] MEDS: MELATONIN 3 MG PO (23:33)
[2025-05-03 06:07] VITALS: BMI 32.0
--- NOTE | 2025-05-03 07:23 | W.PN.HOSP.TC ---
Today's Communication/Plan
-
Discharge today
Assessment / Plan
Assessment / Plan
Physical Exam
General: No Apparent Distress
HEENT: Negative Oxygen
Cardio: S1 and S2. RRR.
Pulmonary: Clear to Auscultation Bilaterally
Skin: Warm. Dry.
Neuro: Awake, Alert, Oriented and Nonfocal/Grossly Intact
Psych: Calm
Assessment/Plan
Alcohol Withdrawal Syndrome
Alcohol Use Disorder
Hyponatremia - Fluctuating
Hypokalemia - Improved
Anion Gap Metabolic Acidosis secondary to alcohol use disorder
- Supportive care with IVFs, antiemetics, etc.
- MSAS scores are low. Phenobarb taper adjusted to switch to oral short taper, completed in the hospital. On 05/03/25, I ppoke with clinical pharmacist: the phenobarbital taper can be completely discontinued prior to
discharge; if patient is well enough to go home, patient no longer needs the phenobarb.
- Recheck BMP and Magnesium outpatient
- Discussed help with alcohol use disorder, patient not interested. Patient has been part of AA and will consider resuming
Essential hypertension - uncontrolled
- Uncontrolled pressure likely with alcohol withdrawal -- now blood pressure has improved significantly
- Previously on multiple medications for BP control - no longer on any Rx medications.
- Continue Toprol-XL 25 mg daily for simultaneous control of heart rate and blood pressure
DM-II
- Previously on metformin but no longer taking this either.
- Follow glucose and cover with SSI as needed.
- HbgA1C 5.5.
Paroxysmal Atrial Fibrillation
- Listed in history - ? related to prior episodes of alcohol overuse.
- Not currently on any medications and not previously on any OAC.
- Monitor on telemetry (initial EKG showed regular tachycardia).
DVT Prophylaxis: SCDs.
Code Status: Full
More than 30 minutes spent in discharge including
Final examination of the patient
Summarizing hospital stay
Instructions for continuing care to all relevant caregivers
Preparation of discharge records, prescriptions, and referral forms
Total time spent (in minutes): 38
Anticipated Discharge: Today
Subjective/Interval History
-
Date of Service: May 03, 2025
Patient was seen and examined. He said he was feeling well, and he denied any nausea, vomiting, hallucinations, tremors, palpitations or any other symptoms or complaints. He stated that he wants to go home today.
Objective Data
-
Labs:
Laboratory Results
05/03/25
06:00
Sodium Pending
Potassium Pending
Chloride Pending
Carbon Dioxide Pending
BUN Pending
Creatinine Pending
Glucose Pending
Calcium Pending
Vital Signs:
Vital Signs
Temp Pulse Resp BP Pulse Ox
98.1 F 90 18 133/84 100
05/02/25 23:23 05/02/25 23:23 05/02/25 23:23 05/02/25 23:23 05/02/25 23:23
I&O
05/02/25 05/03/25 05/04/25
06:59 06:59 06:59
Intake Total 1919 1440 / 1440
Balance 1919 1440 / 1440
[2025-05-03 07:34] VITALS: BP 152/87
[2025-05-03 07:42] LABS: Glucose - Point of Care 104 mg/dl (70-99)
[2025-05-03] MEDS: TOPROL XL 25 MG PO (08:03)
[2025-05-03] MEDS: TUMS CHEWABLE TABLET 200 MG PO (08:03)
[2025-05-03] MEDS: LUMINAL 32.4 MG PO (08:03)
[2025-05-03] MEDS: VITAMIN B1 100 MG PO (08:03)
[2025-05-03] MEDS: FOLVITE 1 MG PO (08:04)
== END 2025-05-03 11:41 | disposition home or self-care (01) | DRG 897 ==
LOC: 3 WEST ACU 00:11
PROVIDERS: Hospitalist; Registered Nurse; ADMITTING PHYSICIAN Hospitalist; ATTENDING PHYSICIAN Hospitalist; EMERGENCY PHYSICIAN Emergency Medicine
DX: F10.230 Alcohol dependence with withdrawal, uncomplicated (principal); E87.1 Hypo-osmolality and hyponatremia; E87.20 Acidosis, unspecified; Z87.891 Personal history of nicotine dependence; E87.6 Hypokalemia; I10 Essential (primary) hypertension; E11.9 Type 2 diabetes mellitus without complications; I48.0 Paroxysmal atrial fibrillation
CPT/HCPCS: 80048; 80053; 80076; 80306; 80307; 81003; 81015; 82077; 82962; 83036; 83735; 84443; 85025; 85027; 93005; 96361; 96365; 96366; 96375; 96376; 99291